=== PATIENT | female | born 1975 | race Caucasian/White ===

== ENCOUNTER → 2016-11-04 | Outpatient (CLI) | payer MEDICARE, OTHER ==
[2016-11-04 22:03] LABS: FREE T4 0.89 NG/DL (0.76-1.46); LUTEINIZING HORMONE 6.3 mIU/mL
== END ==
LOC: M SMT 13:48
PROVIDERS: ATTEND Specialist
DX: N93.8 Other specified abnormal uterine and vaginal bleeding (principal); Z79.899 Other long term (current) drug therapy

== ENCOUNTER → 2016-11-21 | Outpatient (CLI) | payer MEDICARE, OTHER ==
[~2016-11-21] MED LIST: ISOVUE-370 76% 100ML VIAL (Q9967) As Ordered ONE
--- NOTE | 2016-11-22 07:09 | REP ---
Hysterosalpingogram, 11/21/2016: Indication: Infertility, 41 year old female. History of previous tubal ligation. Technique: Internal cervical os was cannulated with fine catheter by Dr. Wally Rahman. Water soluble contrast was injected into the endometrial cavity which was subsequently opacified with contrast. Balloon catheter is seen within the endometrial cavity. Additional contrast was injected but the fallopian tubes did not opacify with contrast. Incidentally noted is ORIF from lumbar discectomies with disc cage placement L4-5, L5-S1. There are bilateral posterior pedicular screws L4-S1. Impression : There is no contrast identified within the fallopian tubes post contrast injection at the internal cervical os. Findings are consistent with prior tubal ligation and bilateral tubal occlusion. Signed by Nona Snow MD 11/24/2016 10:46 A
== END ==
LOC: M RADPRO 11:40
PROVIDERS: ATTEND Specialist
DX: N97.9 Female infertility, unspecified (principal); Z96.7 Presence of other bone and tendon implants
CPT/HCPCS: 58340; 74740; Q9967

== ENCOUNTER → 2016-12-03 | Day surgery (SDC) | payer MEDICARE, OTHER ==
[~2016-12-03] VITALS: Ht 157.5 cm; Wt 75.3 kg
[~2016-12-03] MED LIST changes: +BUPIVACAINE HCL 0.25% 30 ML VIAL As Ordered ONE; +BUPIVACAINE HCL 0.25% 30 ML VIAL XX ONE; +HYDROmorphone HCL 1 MG/ML SYRINGE (J1170) IV PRN; +HYDROmorphone HCL 2 MG/ML 1ML VIAL (J1170) As Ordered ONE; -ISOVUE-370 76% 100ML VIAL (Q9967) As Ordered ONE; +KETOROLAC 60 MG/2 ML VIAL (J1885) As Ordered ONE; +LIDOCAINE 2% INJ 100 MG/5 ML SDV (FOR ANES.) As Ordered ONE; +LR 1,000 ML IV SCH; +METHYLENE BLUE 1% 10 ML VIAL (Q9968) As Ordered ONE; +METO12TA PO; +METOCLOPRAMIDE INJ 10MG/2ML VIAL (J2765) As Ordered ONE; +MIDAZOLAM INJ 2 MG/2 ML VIAL (J2250) As Ordered ONE; +ONDANSETRON 4MG/2ML VIAL (J2405) As Ordered ONE; +ONDANSETRON 4MG/2ML VIAL (J2405) IV PRN; +OXYC1TAB23 PO; +PERCOCET 5MG/325MG TAB PO PRN; +PROPOFOL 500 MG/50 ML VIAL As Ordered ONE; +ROCURONIUM BROMIDE 50 MG/5 ML VIAL As Ordered ONE; +SKEL-29 PO; +SUGAMMADEX SODIUM 500 MG/5 ML VIAL (BRIDION) As Ordered ONE; +dexameTHASONE 4 MG/ML 1ML VIAL (J1100) As Ordered ONE; +fentaNYL 100 MCG/2 ML INJECTION (J3010) As Ordered ONE; +fentaNYL 100 MCG/2 ML INJECTION (J3010) IV PRN
[2016-12-03 07:35] LABS: CONTROL LINE UCG INT CTR LINE PRESENT
--- NOTE | 2016-12-03 10:33 | RO ---
DATE OF PROCEDURE: 12/03/2016 PREOPERATIVE DIAGNOSIS: Pelvic pain, adhesions. POSTOPERATIVE DIAGNOSIS: Pelvic pain, adhesions. PROCEDURE: Operative laparoscopy chromotubation. SURGEON: Wally Rahman MD FINANCIAL AID COUNSELOR: Gena Olmstead MD ANESTHESIA: General endotracheal. ESTIMATED BLOOD LOSS: Minimal. FINDINGS: Normal appearing uterus. Dense adhesions of omentum entire left side of the pelvis. Normal upper abdomen. She had a shortened right fallopian tube with immediate fill and spill of methylene blue dye upon chromotubation. The right ovary is normal. The left ovary is adhesed to the omentum, left tube. It is completely indiscernible. The posterior cul-de-sac is free and the anterior cul-de-sac is free. OPERATIVE SUMMARY: Patient taken to the operating room where general endotracheal anesthesia was induced. She was prepped and draped in sterile fashion in the dorsal lithotomy position. Speculum was placed. A ZReocar uterine manipulator was placed. A Avalos catheter was placed. Periumbilical incision was made with a scalpel. Veress needle was placed through this incision, tenting up on skin of the abdomen. Intraabdominal location with the Veress needle will assess these with saline filled syringe. Pneumoperitoneum was created. A 5 mm scope with trocar was placed through this incision. A second 5 mm suprapubic port was placed in the right side under direct visualization. were used to survey pelvic structures. Methylene blue dye was instilled through into the uterus using the ZUMI manipulator and syringe. There was immediate filled spill dye from the right fallopian tube. There was no filled spill from the left. There were dense adhesions in the left side of the pelvis and uterus. These were deemed not obstructing the right fallopian tube and were unable to be taken down due to severity of the adhesions. The pneumoperitoneum released. All instruments were removed. The skin was closed with #4-0 Monocryl subcuticular sutures. Sponge, instrument and needle counts were correct.
[2016-12-03 11:30] VITALS: BP 149/76
== END | disposition home or self-care (01) ==
LOC: M SDC 06:43
PROVIDERS: ATTEND Specialist
DX: R10.2 Pelvic and perineal pain (principal); K66.0 Peritoneal adhesions (postprocedural) (postinfection); F43.10 Post-traumatic stress disorder, unspecified; F41.9 Anxiety disorder, unspecified; F32.9 Major depressive disorder, single episode, unspecified; E78.00 Pure hypercholesterolemia, unspecified; I10 Essential (primary) hypertension; M51.9 Unspecified thoracic, thoracolumbar and lumbosacral intervertebral disc disorder; F17.210 Nicotine dependence, cigarettes, uncomplicated; Z79.899 Other long term (current) drug therapy; Z88.1 Allergy status to other antibiotic agents; Z88.8 Allergy status to other drugs, medicaments and biological substances
CPT/HCPCS: 36415; 49320; 58350; 84703; 85014; 85018; J1100; J1170; J1885; J2250; J2405; J2765; J3010; Q9968

== ENCOUNTER 2016-12-07 15:19 | Emergency (ER) | payer MEDICARE, OTHER ==
[~2016-12-07 15:19] MED LIST changes: -BUPIVACAINE HCL 0.25% 30 ML VIAL As Ordered ONE; -BUPIVACAINE HCL 0.25% 30 ML VIAL XX ONE; -HYDROmorphone HCL 1 MG/ML SYRINGE (J1170) IV PRN; -HYDROmorphone HCL 2 MG/ML 1ML VIAL (J1170) As Ordered ONE; -KETOROLAC 60 MG/2 ML VIAL (J1885) As Ordered ONE; -LIDOCAINE 2% INJ 100 MG/5 ML SDV (FOR ANES.) As Ordered ONE; -LR 1,000 ML IV SCH; -METHYLENE BLUE 1% 10 ML VIAL (Q9968) As Ordered ONE; -METOCLOPRAMIDE INJ 10MG/2ML VIAL (J2765) As Ordered ONE; -MIDAZOLAM INJ 2 MG/2 ML VIAL (J2250) As Ordered ONE; -ONDANSETRON 4MG/2ML VIAL (J2405) As Ordered ONE; -ONDANSETRON 4MG/2ML VIAL (J2405) IV PRN; -PERCOCET 5MG/325MG TAB PO PRN; -PROPOFOL 500 MG/50 ML VIAL As Ordered ONE; -ROCURONIUM BROMIDE 50 MG/5 ML VIAL As Ordered ONE; -SUGAMMADEX SODIUM 500 MG/5 ML VIAL (BRIDION) As Ordered ONE; -dexameTHASONE 4 MG/ML 1ML VIAL (J1100) As Ordered ONE; -fentaNYL 100 MCG/2 ML INJECTION (J3010) As Ordered ONE; -fentaNYL 100 MCG/2 ML INJECTION (J3010) IV PRN
[2016-12-07 16:17] LABS: BASO % 0.2 % (0.0-1.0); EOS # 0.1 K/mm3 (0.0-0.50); EOS % 1.9 % (0.0-3.0); LARGE UNSTAINED CELL # 0.1 K/mm3 (0.0-0.4); LARGE UNSTAINED CELL % 1.6 % (0.0-4.0); LYMPH # 1.3 K/mm3 (1.5-4.5); MEAN CORPUSCULAR HGB CONC 32.7 g/dl (32.0-36.5); MEAN CORPUSCULAR VOLUME 88.9 fl (80.0-96.0); MONO # 0.6 K/mm3 (0.0-0.8); MONO % 8.5 % (0.0-5.0); NEUTROPHILS % 70.9 % (36.0-66.0); PLATELET COUNT, AUTOMATED 312 k/mm3 (150-450); RED CELL DISTRIBUTION WIDTH 14.9 % (11.5-14.5)
[2016-12-07 16:41] LABS: ANION GAP 8 MEQ/L (8-16); BLOOD UREA NITROGEN 14 MG/DL (7-18); CALCIUM LEVEL 9.2 MG/DL (8.5-10.1); CARBON DIOXIDE LEVEL 28 MEQ/L (21-32); CHLORIDE LEVEL 107 MEQ/L (98-107); CREATININE FOR GFR 0.73 MG/DL (0.55-1.02); GLOMERULAR FILTRATION RATE > 60.0 (>58); GLUCOSE, FASTING 88 MG/DL (70-105); POTASSIUM SERUM 3.8 MEQ/L (3.5-5.1); SODIUM LEVEL 143 MEQ/L (136-145)
[2016-12-07] MEDS ORDERED: ASPIRIN 81 MG CHEW TABLET As Ordered ONE (16:51)
[2016-12-07] MEDS ORDERED: NITROGLYCERIN 0.4 MG SUBL TABLET As Ordered ONE (16:52)
--- NOTE | 2016-12-07 16:59 | ECGEPIP ---
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
[2016-12-07] MEDS ORDERED: MORPHINE 4 MG/ML 1ML SYRINGE As Ordered ONE (18:01)
[2016-12-07] MEDS ORDERED: METOCLOPRAMIDE INJ 10MG/2ML VIAL (J2765) As Ordered ONE (18:01)
--- NOTE | 2016-12-07 21:26 | EDDOCDS ---
Physician Documentation [facility] Name: Scarlett Parker Age: 41 yrs Sex: Female : 1975 Arrival Date: 12/07/2016 Time: 15:19 Bed 6 Private MD: AURORA PIERCE Disposition: 12/07/16 20:56 Discharged to Home/Self Care. Impression: Chest pain, unspecified, Acute pain, not elsewhere classified - dental. - Condition is Stable. - Discharge Instructions: Nonspecific Chest Pain, Dental Pain. - Prescriptions for Offerman 5- 325 mg Oral Tablet - take 1 tablet by ORAL route every 6 hours As needed MDD: 4 tabs; 20 tablet. Aspirin 81 mg - take 1 tablet by ORAL route once daily; 90 tablet. - Medication Reconciliation, Local Pharmacy Hours form. - Follow up: Madalyn Murrell; When: Call to arrange an appointment; Reason: Further diagnostic work-up, Recheck today's complaints, Continuance of care. - Problem is new. - Symptoms are unchanged. - Notes: increase metoprolol to 50 mg a day Historical: - Allergies: Cipro PO; Flagyl; Topamax; - Home Meds: 1. metaxalone 800 mg oral tab 1 tab 3 times per day (Last dose: 12/07/2016) 2. metoprolol tartrate 25 mg Oral tab 1 tab once daily (Last dose: 12/07/2016) 3. omeprazole 40 mg Oral cpDR 1 cap once daily (Last dose: 12/07/2016) 4. ibuprofen 800 mg Oral tab as needed (Last dose: 12/07/2016 13:00) 5. penicillin V potassium 500 mg Oral tab 1 tab 4 times per day (Last dose: 12/07/2016) - PMHx: muscle spasms; high heart rate; GERD; Degenerative disc disease; - PSHx: Spinal Fusion; Laparoscopy (December 2016); - Social history: Smoking status: Patient uses tobacco products, current every day smoker. No barriers to communication noted, The patient speaks fluent Sami, Speaks appropriately for age. - Family history: Not pertinent. - : The pt / caregiver states he / she is not on anticoagulants. Home medication list is obtained from the patient. - Exposure Risk Screening:: None identified. 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 2 in. (157.48 cm) (R); Pain 6/10; 15:49 BP 195 / 126 (auto/); ja5 15:49 Pulse 82 MON; Pulse Ox 98% ; ja5 16:07 BP 192 / 113 (auto/); ja5 16:07 Pulse 84 MON; Pulse Ox 97% ; ja5 16:12 Pulse 84 MON; Pulse Ox 97% ; ja5 16:13 BP 174 / 104 (auto/); ja5 16:16 BP 194 / 122 (man/); ja5 16:27 Pulse 78 MON; Pulse Ox 96% ; ja5 16:28 BP 194 / 111 (auto/); ja5 16:42 Pulse 82 MON; Pulse Ox 97% ; ja5 16:43 BP 178 / 112 (auto/); ja5 17:01 BP 158 / 98; ja5 17:05 BP 153 / 78; ja5 17:11 BP 136 / 75; ja5 17:12 BP 136 / 75 Sitting; ja5 17:31 Pulse 80 MON; Pulse Ox 96% ; ja5 17:32 BP 149 / 100 (auto/); ja5 17:48 BP 127 / 56 (auto/); ja5 18:24 BP 118 / 57 (auto/); ja5 18:24 Pulse 104 MON; Pulse Ox 90% ; ja5 18:48 BP 170 / 96 (auto/); js15 18:48 Pulse 86 MON; Pulse Ox 96% ; js15 18:51 Pain 5/10; ja5 18:54 BP 172 / 102 (auto/); js15 18:54 Pulse 80 MON; Pulse Ox 96% ; js15 18:56 BP 172 / 102; Pulse 83; Resp 16; Temp 97.7(O); Pulse Ox 96% on R/A; Pain 5/10; ja5 19:02 BP 175 / 103 (auto/); js15 19:02 Pulse 86 MON; Pulse Ox 97% ; js15 19:17 BP 161 / 101 (auto/); js15 19:17 Pulse 80 MON; Pulse Ox 94% ; js15 19:32 BP 176 / 105 (auto/); js15 19:32 Pulse 74 MON; Pulse Ox 92% ; js15 19:47 BP 161 / 103 (auto/); js15 19:47 Pulse 74 MON; Pulse Ox 94% ; js15 20:02 BP 161 / 105 (auto/); js15 20:02 Pulse 82 MON; Pulse Ox 96% ; js15 20:17 BP 162 / 109 (auto/); js15 20:17 Pulse 80 MON; Pulse Ox 94% ; js15 20:32 BP 172 / 108 (auto/); js15 20:32 Pulse 74 MON; Pulse Ox 95% ; js15 20:47 BP 179 / 105 (auto/); js15 20:47 Pulse 76 MON; Pulse Ox 96% ; js15 21:05 Pulse 82 MON; Resp 20; Temp 100.0; Pulse Ox 97% on R/A; Pain 4/10; js15 21:07 BP 159 / 79 (auto/); js15 15:21 Body Mass Index 31.28 (77.56 kg, 157.48 cm) gr2 MDM: 15:24 ECG WITH READING ER PHYS+CARDIAG ordered. EDMS 15:47 Lead Man Over All Dies In Pattern Shop/Pulse Ox/q 30 min VS ordered. jc4 15:47 IV Saline Lock ordered. jc4 15:47 Rhythm Strip to chart ordered. jc4 15:47 Undress patient appropriately for examination ordered. jc4 15:47 Basic Metabolic Profile Ordered. EDMS 15:47 CBC with Diff Ordered. EDMS 15:47 Cardiac Injury Profile Ordered. EDMS 15:47 Troponin Ordered. EDMS 16:33 Financial registration complete. gjb 16:33 Nitrostat 0.4 mg Sublingual every 5 minutes; hold if SBP<90mmHg.Document Pain Score ke Response to Each Dose x3 ordered. 16:33 Aspirin 324 mg PO once ordered. ke 16:35 Chest, 2 View (pa\E\lat) Ordered. EDMS 16:37 [facility] [place] Agreement was scanned into [employer] and attached to record. gjb 16:44 CBC with Diff Reviewed. ke 16:44 Basic Metabolic Profile Reviewed. ke 16:44 Cardiac Injury Profile Reviewed. ke 16:44 Troponin Reviewed. ke 17:50 Redraw CIP &Troponin (put time in details section) ordered. ke 17:50 Repeat EKG (put time details section) ordered. ke 17:50 Metoclopramide 10 mg IV at 40 mg/hr once over 15 mins ordered. ke 17:50 morphine 4 mg IVP once ordered. ke 17:54 Repeat EKG (put time details section) complete. ar3 17:55 Redraw CIP &Troponin (put time in details section) complete. ar3 17:55 ECG WITH READING ER PHYS ordered. EDMS 17:56 CARDIAC MARKER PANEL Ordered. EDMS 18:24 EKG-ADULT Reviewed. ke 20:07 ECG WITH READING ER PHYS+CARDIAG ordered. EDMS 20:43 CARDIAC MARKER PANEL Reviewed. ke Administered Medications: 16:55 Drug: Nitrostat 0.4 mg [Nitrostat 0.4 mg sublingual tablet (1 tabs)] Route: Sublingual; ja5 16:55 Drug: Aspirin 324 mg [aspirin 81 mg chewable tablet (4 tabs)] Route: PO; ja5 17:00 Drug: Nitrostat 0.4 mg [Nitrostat 0.4 mg sublingual tablet (1 tabs)] Route: Sublingual; ja5 17:06 Drug: Nitrostat 0.4 mg [Nitrostat 0.4 mg sublingual tablet (1 tabs)] Route: Sublingual; ja5 17:12 Follow up: BP 136 / 75 Sitting ja5 18:14 Drug: morphine 4 mg [morphine 4 mg/mL intravenous cartridge (1 mL)] Route: IVP; Site: ja5 left antecubital; 18:51 Follow up: Pain 5/10 Adult ja5 18:15 Drug: Metoclopramide 10 mg [metoclopramide 5 mg/mL injection solution] Route: IV; Rate: ja5 40 mg/hr; Infused Over: 15 mins; Site: left antecubital; 18:52 Follow up: IV Status: Completed infusion ja5 Signatures: Dispatcher [employer] EDJhoan Hinds, CURRICULUM WRITER CURRICULUM WRITER Kari JonesRN RN kr3 Jerri Wylie, MAINTENANCE TECHNICIAN 3RD SHIFT MAINTENANCE TECHNICIAN 3RD SHIFT adria3 Bernadette Dunbar RN RN jc4 Miranda ChaudharyRN RN prudence15 Junie Lynch Jessica RN ja5 The chart was reviewed and I authenticate all verbal orders and agree with the evaluation and treatment provided.Attachments: 16:37 [facility] [place] Payment Agreement gjb MTDD
--- NOTE | 2016-12-07 21:26 | EDDOCDS ---
Nurse's Notes [facility] Name: Jeovany Dong Age: 41 yrs Sex: Female : 1975 Arrival Date: 12/07/2016 Time: 15:19 Bed 6 Private MD: AURORA PIERCE Diagnosis: Chest pain, unspecified;Acute pain, not elsewhere classified-dental Presentation: 12/07 15:23 Presenting complaint: Patient states: feeling out of breath and chest pain for several kr3 hours. Aspirin was not taken prior to arrival. Adult Sepsis Screening: The patient does not have new or worsening altered mentation. Patient's respiratory rate is less than 22. Systolic blood pressure is greater than 100. Patient has a qSOFA score of 0- Negative Sepsis Screen. Suicide/Homicide risk assessment- the patient denies having any suicidal and/or homicidal ideations and does not present with any other emotional, behavioral or mental health complaints. Status: The patient is a dependent. 15:23 Acuity: IRENE Level 2 kr3 15:23 Method Of Arrival: Walkin/Carried/Asstd kr3 15:36 Transition of care: patient was not received from another setting of care. Red Flag kr3 criteria, patient assessed and taken directly to a bed. Triage Assessment: 15:27 General: Appears in no apparent distress, Behavior is appropriate for age, cooperative. kr3 Pain: Location: chest Pain currently is 2 out of 10 on a pain scale. Quality of pain is described as heaviness, warm. HIV screening NA for this visit Offered previously. Cardiovascular: Chest pain is described as mild, radiates to left shoulder episodes are continuous began 2 hours prior to arrival. Respiratory: Airway is patent Respiratory effort is even, unlabored, Reports shortness of breath pain with respiration. Derm: Skin is normal. 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 metaxalone 800 mg oral tab 1 tab 3 times per day (Last dose: 12/07/2016) 2. metoprolol tartrate 25 mg Oral tab 1 tab once daily (Last dose: 12/07/2016) 3. omeprazole 40 mg Oral cpDR 1 cap once daily (Last dose: 12/07/2016) 4. ibuprofen 800 mg Oral tab as needed (Last dose: 12/07/2016 13:00) 5. penicillin V potassium 500 mg Oral tab 1 tab 4 times per day (Last dose: 12/07/2016) - PMHx: muscle spasms; high heart rate; GERD; Degenerative disc disease; - PSHx: Spinal Fusion; Laparoscopy (December 2016); - Social history: Smoking status: Patient uses tobacco products, current every day smoker. No barriers to communication noted, The patient speaks fluent Kinyarwanda, Speaks appropriately for age. - Family history: Not pertinent. - : The pt / caregiver states he / she is not on anticoagulants. Home medication list is obtained from the patient. - Exposure Risk Screening:: None identified. Screenin:11 Screening information is obtained from the patient. Fall risk: No risks identified. ja5 Assistance ADL's: requires no assistance with activities of daily living. Abuse/DV Screen: The patient / caregiver reports he/she is: not in a situation that causes fear, pain or injury. Nutritional screening: On no prescribed diet. Advance Directives: Currently, there is a health care proxy, Ani Porter, . There is no active DNR order. There is no living will. There is no Power of Production Reproduction Manager. home support is adequate. Assessment: 15:52 General: Appears in no apparent distress, Behavior is appropriate for age, cooperative. ja5 Pain: Location: chest Pain currently is 2 out of 10 on a pain scale. Pain radiates to left clavicle. Neurological: Level of Consciousness is awake, alert, Oriented to person, place, time. Cardiovascular: Capillary refill < 3 seconds Heart tones S1 S2 present Rhythm is sinus rhythm No ectopy. Derm: Skin is intact, Skin is flushed. 16:16 Neurological: Reports numbness to face. ja5 17:09 General: Initial blood pressures and that a manual was taken and it corresponds with ja5 NIBP trends. Patient also experiencing facial numbness. Provider awake.. 17:29 General: Patient just returned from xray, laying in stretcher, family at bedside, face ja5 is still flushed, patient reports increased numbness to face, provider aware. Patient is having pain in her tooth 05/11.. 18:59 General: Patient is awake and alert, resting in stretcher watching tv. Patient still ja5 having numbness to face, tooth pain is down to a 5/10, patient states that she is not having chest pain at this time.. 19:30 General: Appears in no apparent distress, comfortable, Behavior is appropriate for age, js15 cooperative. Pain: Location: chest; left jaw Pain currently is 7 out of 10 on a pain scale. Neurological: Level of Consciousness is awake, alert, obeys commands, Oriented to person, place, time. Cardiovascular: Rhythm is sinus rhythm. Respiratory: Airway is patent Respiratory effort is even, unlabored, Respiratory pattern is regular, symmetrical. Derm: Skin is pink, warm & dry. 20:30 Reassessment: Patient appears in no apparent distress at this time. Pt resting on js15 stretcher with family at bedside; respirations even and unlabored; skin pink, warm, dry. 21:17 Reassessment: Patient appears in no apparent distress at this time. Pain: Location: js15 chest; left jaw Pain currently is 4 out of 10 on a pain scale. Neurological: Level of Consciousness is awake, alert, obeys commands, Oriented to person, place, time. Cardiovascular: Rhythm is sinus rhythm. Respiratory: Airway is patent Respiratory effort is even, unlabored, Respiratory pattern is regular, symmetrical. Derm: Skin is pink, warm & dry. Vital Signs: 15:11 Pulse 114 MON; Pulse Ox 92% ; ja5 15:21 BP 187 / 123; Pulse 91; Resp 18 S; Temp 98.6(O); Pulse Ox 99% on R/A; Weight 77.56 kg gr2 (R); Height 5 ft. 2 in. (157.48 cm) (R); Pain 6/10; 15:49 BP 195 / 126 (auto/); ja5 15:49 Pulse 82 MON; Pulse Ox 98% ; ja5 16:07 BP 192 / 113 (auto/); ja5 16:07 Pulse 84 MON; Pulse Ox 97% ; ja5 16:12 Pulse 84 MON; Pulse Ox 97% ; ja5 16:13 BP 174 / 104 (auto/); ja5 16:16 BP 194 / 122 (man/); ja5 16:27 Pulse 78 MON; Pulse Ox 96% ; ja5 16:28 BP 194 / 111 (auto/); ja5 16:42 Pulse 82 MON; Pulse Ox 97% ; ja5 16:43 BP 178 / 112 (auto/); ja5 17:01 BP 158 / 98; ja5 17:05 BP 153 / 78; ja5 17:11 BP 136 / 75; ja5 17:12 BP 136 / 75 Sitting; ja5 17:31 Pulse 80 MON; Pulse Ox 96% ; ja5 17:32 BP 149 / 100 (auto/); ja5 17:48 BP 127 / 56 (auto/); ja5 18:24 BP 118 / 57 (auto/); ja5 18:24 Pulse 104 MON; Pulse Ox 90% ; ja5 18:48 BP 170 / 96 (auto/); js15 18:48 Pulse 86 MON; Pulse Ox 96% ; js15 18:51 Pain 5/10; ja5 18:54 BP 172 / 102 (auto/); js15 18:54 Pulse 80 MON; Pulse Ox 96% ; js15 18:56 BP 172 / 102; Pulse 83; Resp 16; Temp 97.7(O); Pulse Ox 96% on R/A; Pain 5/10; ja5 19:02 BP 175 / 103 (auto/); js15 19:02 Pulse 86 MON; Pulse Ox 97% ; js15 19:17 BP 161 / 101 (auto/); js15 19:17 Pulse 80 MON; Pulse Ox 94% ; js15 19:32 BP 176 / 105 (auto/); js15 19:32 Pulse 74 MON; Pulse Ox 92% ; js15 19:47 BP 161 / 103 (auto/); js15 19:47 Pulse 74 MON; Pulse Ox 94% ; js15 20:02 BP 161 / 105 (auto/); js15 20:02 Pulse 82 MON; Pulse Ox 96% ; js15 20:17 BP 162 / 109 (auto/); js15 20:17 Pulse 80 MON; Pulse Ox 94% ; js15 20:32 BP 172 / 108 (auto/); js15 20:32 Pulse 74 MON; Pulse Ox 95% ; js15 20:47 BP 179 / 105 (auto/); js15 20:47 Pulse 76 MON; Pulse Ox 96% ; js15 21:05 Pulse 82 MON; Resp 20; Temp 100.0; Pulse Ox 97% on R/A; Pain 4/10; js15 21:07 BP 159 / 79 (auto/); js15 15:21 Body Mass Index 31.28 (77.56 kg, 157.48 cm) gr2 Vitals: 15:21 Log In Time: December 07, 2016 at 15:21. RN notified that patient meets Red Flag gr2 criteria. ED Course: 15:21 Patient visited by Lexy Cardenas. gr2 15:21 AURORA PIERCE is Private Physician. gr2 15:21 Patient moved to Waiting gr2 15:22 Patient visited by Lexy Cardenas. gr2 15:24 Triage Initiated kr3 15:30 Marcia Child,RN is Primary Nurse. kr3 15:30 Bernadette Dunbar, JUANJOSE is Primary Nurse. kr3 15:30 Patient moved to 6 kr3 15:50 Patient visited by Vira Corey. sew 15:50 EKG done. (by ED staff). Reviewed by Jhoan GUY. sew 16:10 Basic Metabolic Profile Sent. ja5 16:10 CBC with Diff Sent. ja5 16:10 Cardiac Injury Profile Sent. ja5 16:10 Troponin Sent. ja5 16:14 Inserted saline lock: 20 gauge in left antecubital area The patient tolerated the ja5 procedure well. 16:15 [facility] ke 16:15 Patient visited by Jhoan Valerio FNP. ke 16:15 Patient visited by Jhoan Valerio FNP. ke 16:37 [facility] Payment Agreement was scanned into [employer] and attached to record. gjb 16:44 Patient visited by Jhoan Valerio FNP. ke 17:07 Patient visited by Jhoan Valerio FNP. ke 17:12 Patient visited by Marcia Child RN. ja5 17:19 EKG-ADULT Returned. EDMS 17:34 Patient visited by Marcia Child RN. ja5 17:57 Patient visited by Jhoan Valerio FNP. ke 18:06 EKG done. (by ED staff). Reviewed by Vira Wallace MD. lr2 18:26 Patient visited by Jhoan Valerio FNP. ke 18:53 Patient visited by Jhoan Valerio FNP. ke 19:00 The patient / caregiver is instructed regarding the plan of care and ED course. Cardiac js15 monitor on. Pulse ox on. NIBP on. monitoring maintained from previous shift. 19:01 Patient visited by Marcia Child RN. ja5 19:29 Patient visited by Johan Valerio FNP. ke 20:04 CARDIAC MARKER PANEL Sent. js15 20:10 Patient visited by Sarah Heath, Aircraft Structural Repair Mechanic. jlm 20:10 EKG done. (by ED staff). Reviewed by Jhoan GUY. jlm 20:32 Primary Nurse role handed off by Marcia Child RN [facility] 20:32 Primary Nurse role handed off by Bernadette Dunbar RN [facility] 20:34 Patient visited by Jhoan Valerio FNP. ke 20:55 Madalyn Murrell is Referral Physician. ke 21:24 Discontinued IV lock intact, bleeding controlled, pressure dressing applied, No js15 redness/swelling at site. No procedures done that require assistance. Administered Medications: 16:55 Drug: Nitrostat 0.4 mg [Nitrostat 0.4 mg sublingual tablet (1 tabs)] Route: Sublingual; ja5 16:55 Drug: Aspirin 324 mg [aspirin 81 mg chewable tablet (4 tabs)] Route: PO; ja5 17:00 Drug: Nitrostat 0.4 mg [Nitrostat 0.4 mg sublingual tablet (1 tabs)] Route: Sublingual; ja5 17:06 Drug: Nitrostat 0.4 mg [Nitrostat 0.4 mg sublingual tablet (1 tabs)] Route: Sublingual; ja5 17:12 Follow up: BP 136 / 75 Sitting ja5 18:14 Drug: morphine 4 mg [morphine 4 mg/mL intravenous cartridge (1 mL)] Route: IVP; Site: ja5 left antecubital; 18:51 Follow up: Pain 5/10 Adult ja5 18:15 Drug: Metoclopramide 10 mg [metoclopramide 5 mg/mL injection solution] Route: IV; Rate: ja5 40 mg/hr; Infused Over: 15 mins; Site: left antecubital; 18:52 Follow up: IV Status: Completed infusion ja5 Order Results: Lab Order: Basic Metabolic Profile; SPEC'M 12/07/16 16:09 Test: GLUCOSE, FASTING; Value: 88; Range: 70-105; Units: MG/DL; Status: F Test: BLOOD UREA NITROGEN; Value: 14; Range: 7-18; Units: MG/DL; Status: F Test: CREATININE FOR GFR; Value: 0.73; Range: 0.55-1.02; Units: MG/DL; Status: F Test: GLOMERULAR FILTRATION RATE; Value: > 60.0; Range: >58; Status: F Test: SODIUM LEVEL; Value: 143; Range: 136-145; Units: MEQ/L; Status: F Test: POTASSIUM SERUM; Value: 3.8; Range: 3.5-5.1; Units: MEQ/L; Status: F Test: CHLORIDE LEVEL; Value: 107; Range: 98-107; Units: MEQ/L; Status: F Test: CARBON DIOXIDE LEVEL; Value: 28; Range: 21-32; Units: MEQ/L; Status: F Test: ANION GAP; Value: 8; Range: 8-16; Units: MEQ/L; Status: F Test: CALCIUM LEVEL; Value: 9.2; Range: 8.5-10.1; Units: MG/DL; Status: F Test Note: ; Units are mL/min/1.73 m2 Chronic Kidney Disease Staging per NKF: Stage I & II GFR >=60 Normal to Mildly Decreased Stage III GFR 30-59 Moderately Decreased Stage IV GFR 15-29 Severely Decreased Stage V GFR <15 Very Little GFR Left ESRD GFR <15 on DOG CONTROL OFFICER Lab Order: CBC with Diff; SPEC'M 12/07/16 16:09 Test: WHITE BLOOD COUNT; Value: 7.0; Range: 4.0-10.0; Units: K/mm3; Status: F Test: RED BLOOD COUNT; Value: 4.16; Range: 4.00-5.40; Units: M/mm3; Status: F Test: HEMOGLOBIN; Value: 12.1; Range: 12.0-16.0; Units: g/dl; Status: F Test: HEMATOCRIT; Value: 36.9; Range: 36.0-47.0; Units: %; Status: F Test: MEAN CORPUSCULAR VOLUME; Value: 88.9; Range: 80.0-96.0; Units: fl; Status: F Test: MEAN CORPUSCULAR HEMOGLOBIN; Value: 29.0; Range: 27.0-33.0; Units: pg; Status: F Test: MEAN CORPUSCULAR HGB CONC; Value: 32.7; Range: 32.0-36.5; Units: g/dl; Status: F Test: RED CELL DISTRIBUTION WIDTH; Value: 14.9; Range: 11.5-14.5; Abnormal: Above high normal; Units: %; Status: F Test: PLATELET COUNT, AUTOMATED; Value: 312; Range: 150-450; Units: k/mm3; Status: F Test: NEUTROPHILS %; Value: 70.9; Range: 36.0-66.0; Abnormal: Above high normal; Units: %; Status: F Test: LYMPH %; Value: 17.0; Range: 24.0-44.0; Abnormal: Below low normal; Units: %; Status: F Test: MONO %; Value: 8.5; Range: 0.0-5.0; Abnormal: Above high normal; Units: %; Status: F Test: EOS %; Value: 1.9; Range: 0.0-3.0; Units: %; Status: F Test: BASO %; Value: 0.2; Range: 0.0-1.0; Units: %; Status: F Test: LARGE UNSTAINED CELL %; Value: 1.6; Range: 0.0-4.0; Units: %; Status: F Test: NEUTROPHILS #; Value: 5.0; Range: 1.8-7.7; Units: K/mm3; Status: F Test: LYMPH #; Value: 1.3; Range: 1.5-4.5; Abnormal: Below low normal; Units: K/mm3; Status: F Test: MONO #; Value: 0.6; Range: 0.0-0.8; Units: K/mm3; Status: F Test: EOS #; Value: 0.1; Range: 0.0-0.50; Units: K/mm3; Status: F Test: BASO #; Value: 0.0; Range: 0.0-0.2; Units: K/mm3; Status: F Test: LARGE UNSTAINED CELL #; Value: 0.1; Range: 0.0-0.4; Units: K/mm3; Status: F Lab Order: Cardiac Injury Profile; SPEC'M 12/07/16 16:09 Test: CPK CREATINE PHOSPHOKINASE; Value: 46; Range: 26-192; Units: U/L; Status: F Test: CK-MB VALUE MASS; Value: 1.0; Range: 0.0-3.6; Units: NG/ML; Status: F Test: MB/CK RELATIVE INDEX; Value: 2.17; Range: < OR =4; Status: F Test Note: ; DIAGNOSIS CRITERIA MMB ng/ml Relative Index (RI) NON-AMI < or = 5 N/A COBURN ZONE > 5 < or = 4 AMI > 5 > 4 Lab Order: Troponin; SPEC'M 12/07/16 16:09 Test: TROPONIN I; Value: < 0.02; Range: < 0.10; Units: NG/ML; Status: F Test Note: ; Troponin I Reference Interval for [place] LOCI: 99th Percentile= 0.00-0.045 ng/ml Risk Stratification: <= 0.10 ng/ml Decreased Risk for Adverse Clinical Events. 0.10-1.50 ng/ml Increased Risk for Adverse Clinical Events. Evaluation of additional criterion and/or repeat testing in 2-6 hours is suggested to rule out myocardial damage. >= 1.50 ng/ml Indicative of Myocardial Injury. Lab Order: CARDIAC MARKER PANEL; SPEC'M 12/07/16 20:03 Test: CPK CREATINE PHOSPHOKINASE; Value: 52; Range: 26-192; Units: U/L; Status: F Test: CK-MB VALUE MASS; Value: 1.0; Range: 0.0-3.6; Units: NG/ML; Status: F Test: MB/CK RELATIVE INDEX; Value: 1.92; Range: < OR =4; Status: F Test: TROPONIN I; Value: < 0.02; Range: < 0.10; Units: NG/ML; Status: F Test Note: ; DIAGNOSIS CRITERIA MMB ng/ml Relative Index (RI) NON-AMI < or = 5 N/A COBURN ZONE > 5 < or = 4 AMI > 5 > 4 Radiology Order: EKG-ADULT Test: EKG-ADULT REASON FOR EXAMINATION: Chest Pain; Stationary ECG Study; [facility] - ED; ; Test Date: 2016-12-07; Pat Name: JEOVANY DONG Department:; Room: -; Gender: F 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 johnathan 21:24 Discharge Assessment: Patient awake, alert and oriented x 3. No cognitive and/or js15 functional deficits noted. Patient verbalized understanding of disposition instructions. patient administered narcotics - yes. Pt provided with safe discharge. The following High Risk Discharge criteria are identified: None. Discharged to home ambulatory, with family. Condition: stable. Discharge instructions given to patient, Instructed on discharge instructions, follow up and referral plans. medication usage, no driving heavy equipment, Demonstrated understanding of instructions, medications, Pt was receptive of discharge instructions/ teaching. Prescriptions given X 2. No special radiology studies were completed. Property sent home with patient. 21:25 Patient left the ED. js15 Signatures: Dispatcher [employer] EDMS Jhoan Valerio, CHARTER DRIVER CHARTER DRIVER Kari Jones,RN RN Vira Johnson McLear, Uzma, TOLL BRIDGE ATTENDANT TOLL BRIDGE ATTENDANT tmm1 Lexy Cardenas gr2 Sarah Heath, Aircraft Structural Repair Mechanic Unit Miranda PuentesRN RN js15 Junie Lynch Jessica,RN RN Paola Francis2 Corrections: (The following items were deleted from the chart) 17:04 17:03 Nitrostat 0.4 mg Sublingual ja5 ja5 17:04 17:04 Nitrostat 0.4 mg Sublingual ja5 ja5 MTDD
--- NOTE | 2016-12-08 05:54 | REP ---
Chest x-ray: Two views. History: Chest pain. No comparison study. Findings: The lungs are well inflated and clear. Pleural angles are sharp. EKG monitoring electrodes overlie the chest. Pulmonary vasculature is not increased. No significant bony abnormality is seen. Impression: No active disease. Signed by Adrien Moctezuma MD 12/08/2016 02:24 P
--- NOTE | 2016-12-08 07:09 | ECGEPIP ---
Stationary ECG Study [facility] - ED Test Date: 2016-12-07 Pat Name: JEOVANY DONG Department: Room: - Gender: F [employer] Supervisor: millie : 1975 Requested By: EV GUY Order Number: [id number] Reading MD: Sergey Pandey Measurements Intervals [place] Rate: 78 P: 23 MS: 152 QRS: 36 QRSD: 92 T: 23 QT: 378 QTc: 433 Interpretive Statements SINUS RHYTHM INCOMPLETE RIGHT BUNDLE BRANCH BLOCK Electronically Signed On 12-08-2016 7:09:26 EST by Sergey Pandey
--- NOTE | 2016-12-08 07:10 | ECGEPIP ---
Stationary ECG Study [facility] - ED Test Date: 2016-12-07 Pat Name: JEOVANY DONG Department: Room: - Gender: F Pot Pusher: eyad : 1975 Requested By: EV UGY Order Number: [id number] Reading MD: Sergey Pandey Measurements Intervals [place] Rate: 82 P: 28 [place]: 152 QRS: 41 QRSD: 90 T: 24 QT: 369 QTc: 431 Interpretive Statements SINUS RHYTHM INC. RBBB Electronically Signed On 12-08-2016 7:10:24 EST by Sergey Pandey
--- NOTE | 2016-12-09 22:26 | EDDOCDS ---
Nurse's Notes [facility] Name: Jeovany Dong Age: 41 yrs Sex: Female : 1975 Arrival Date: 12/07/2016 Time: 15:19 Bed 6 Private MD: AURORA PIERCE Diagnosis: Chest pain, unspecified;Acute pain, not elsewhere classified-dental Presentation: 12/07 15:23 Presenting complaint: Patient states: feeling out of breath and chest pain for several kr3 hours. Aspirin was not taken prior to arrival. Adult Sepsis Screening: The patient does not have new or worsening altered mentation. Patient's respiratory rate is less than 22. Systolic blood pressure is greater than 100. Patient has a qSOFA score of 0- Negative Sepsis Screen. Suicide/Homicide risk assessment- the patient denies having any suicidal and/or homicidal ideations and does not present with any other emotional, behavioral or mental health complaints. Status: The patient is a dependent. 15:23 Acuity: IRENE Level 2 kr3 15:23 Method Of Arrival: Walkin/Carried/Asstd kr3 15:36 Transition of care: patient was not received from another setting of care. Red Flag kr3 criteria, patient assessed and taken directly to a bed. Triage Assessment: 15:27 General: Appears in no apparent distress, Behavior is appropriate for age, cooperative. kr3 Pain: Location: chest Pain currently is 2 out of 10 on a pain scale. Quality of pain is described as heaviness, warm. HIV screening NA for this visit Offered previously. Cardiovascular: Chest pain is described as mild, radiates to left shoulder episodes are continuous began 2 hours prior to arrival. Respiratory: Airway is patent Respiratory effort is even, unlabored, Reports shortness of breath pain with respiration. Derm: Skin is normal. VISUAL SPECIALIST: 15:27 LMP 12/04/2016 kr3 Historical: - Allergies: Cipro PO; Flagyl; Topamax; - Home Meds: 1. metaxalone 800 mg oral tab 1 tab 3 times per day (Last dose: 12/07/2016) 2. metoprolol tartrate 25 mg Oral tab 1 tab once daily (Last dose: 12/07/2016) 3. omeprazole 40 mg Oral cpDR 1 cap once daily (Last dose: 12/07/2016) 4. ibuprofen 800 mg Oral tab as needed (Last dose: 12/07/2016 13:00) 5. penicillin V potassium 500 mg Oral tab 1 tab 4 times per day (Last dose: 12/07/2016) - PMHx: muscle spasms; high heart rate; GERD; Degenerative disc disease; - PSHx: Spinal Fusion; Laparoscopy (December 2016); - Social history: Smoking status: Patient uses tobacco products, current every day smoker. No barriers to communication noted, The patient speaks fluent Indian, Speaks appropriately for age. - Family history: Not pertinent. - : The pt / caregiver states he / she is not on anticoagulants. Home medication list is obtained from the patient. - Exposure Risk Screening:: None identified. Screenin:11 Screening information is obtained from the patient. Fall risk: No risks identified. ja5 Assistance ADL's: requires no assistance with activities of daily living. Abuse/DV Screen: The patient / caregiver reports he/she is: not in a situation that causes fear, pain or injury. Nutritional screening: On no prescribed diet. Advance Directives: Currently, there is a health care proxy, Ani Porter, . There is no active DNR order. There is no living will. There is no Power of Tug Hand. home support is adequate. Assessment: 15:52 General: Appears in no apparent distress, Behavior is appropriate for age, cooperative. ja5 Pain: Location: chest Pain currently is 2 out of 10 on a pain scale. Pain radiates to left clavicle. Neurological: Level of Consciousness is awake, alert, Oriented to person, place, time. Cardiovascular: Capillary refill < 3 seconds Heart tones S1 S2 present Rhythm is sinus rhythm No ectopy. Derm: Skin is intact, Skin is flushed. 16:16 Neurological: Reports numbness to face. ja5 17:09 General: Initial blood pressures and that a manual was taken and it corresponds with ja5 NIBP trends. Patient also experiencing facial numbness. Provider awake.. 17:29 General: Patient just returned from xray, laying in stretcher, family at bedside, face ja5 is still flushed, patient reports increased numbness to face, provider aware. Patient is having pain in her tooth 05/11.. 18:59 General: Patient is awake and alert, resting in stretcher watching tv. Patient still ja5 having numbness to face, tooth pain is down to a 5/10, patient states that she is not having chest pain at this time.. 19:30 General: Appears in no apparent distress, comfortable, Behavior is appropriate for age, js15 cooperative. Pain: Location: chest; left jaw Pain currently is 7 out of 10 on a pain scale. Neurological: Level of Consciousness is awake, alert, obeys commands, Oriented to person, place, time. Cardiovascular: Rhythm is sinus rhythm. Respiratory: Airway is patent Respiratory effort is even, unlabored, Respiratory pattern is regular, symmetrical. Derm: Skin is pink, warm & dry. 20:30 Reassessment: Patient appears in no apparent distress at this time. Pt resting on js15 stretcher with family at bedside; respirations even and unlabored; skin pink, warm, dry. 21:17 Reassessment: Patient appears in no apparent distress at this time. Pain: Location: js15 chest; left jaw Pain currently is 4 out of 10 on a pain scale. Neurological: Level of Consciousness is awake, alert, obeys commands, Oriented to person, place, time. Cardiovascular: Rhythm is sinus rhythm. Respiratory: Airway is patent Respiratory effort is even, unlabored, Respiratory pattern is regular, symmetrical. Derm: Skin is pink, warm & dry. Vital Signs: 15:11 Pulse 114 MON; Pulse Ox 92% ; ja5 15:21 BP 187 / 123; Pulse 91; Resp 18 S; Temp 98.6(O); Pulse Ox 99% on R/A; Weight 77.56 kg gr2 (R); Height 5 ft. 2 in. (157.48 cm) (R); Pain 6/10; 15:49 BP 195 / 126 (auto/); ja5 15:49 Pulse 82 MON; Pulse Ox 98% ; ja5 16:07 BP 192 / 113 (auto/); ja5 16:07 Pulse 84 MON; Pulse Ox 97% ; ja5 16:12 Pulse 84 MON; Pulse Ox 97% ; ja5 16:13 BP 174 / 104 (auto/); ja5 16:16 BP 194 / 122 (man/); ja5 16:27 Pulse 78 MON; Pulse Ox 96% ; ja5 16:28 BP 194 / 111 (auto/); ja5 16:42 Pulse 82 MON; Pulse Ox 97% ; ja5 16:43 BP 178 / 112 (auto/); ja5 17:01 BP 158 / 98; ja5 17:05 BP 153 / 78; ja5 17:11 BP 136 / 75; ja5 17:12 BP 136 / 75 Sitting; ja5 17:31 Pulse 80 MON; Pulse Ox 96% ; ja5 17:32 BP 149 / 100 (auto/); ja5 17:48 BP 127 / 56 (auto/); ja5 18:24 BP 118 / 57 (auto/); ja5 18:24 Pulse 104 MON; Pulse Ox 90% ; ja5 18:48 BP 170 / 96 (auto/); js15 18:48 Pulse 86 MON; Pulse Ox 96% ; js15 18:51 Pain 5/10; ja5 18:54 BP 172 / 102 (auto/); js15 18:54 Pulse 80 MON; Pulse Ox 96% ; js15 18:56 BP 172 / 102; Pulse 83; Resp 16; Temp 97.7(O); Pulse Ox 96% on R/A; Pain 5/10; ja5 19:02 BP 175 / 103 (auto/); js15 19:02 Pulse 86 MON; Pulse Ox 97% ; js15 19:17 BP 161 / 101 (auto/); js15 19:17 Pulse 80 MON; Pulse Ox 94% ; js15 19:32 BP 176 / 105 (auto/); js15 19:32 Pulse 74 MON; Pulse Ox 92% ; js15 19:47 BP 161 / 103 (auto/); js15 19:47 Pulse 74 MON; Pulse Ox 94% ; js15 20:02 BP 161 / 105 (auto/); js15 20:02 Pulse 82 MON; Pulse Ox 96% ; js15 20:17 BP 162 / 109 (auto/); js15 20:17 Pulse 80 MON; Pulse Ox 94% ; js15 20:32 BP 172 / 108 (auto/); js15 20:32 Pulse 74 MON; Pulse Ox 95% ; js15 20:47 BP 179 / 105 (auto/); js15 20:47 Pulse 76 MON; Pulse Ox 96% ; js15 21:05 Pulse 82 MON; Resp 20; Temp 100.0; Pulse Ox 97% on R/A; Pain 4/10; js15 21:07 BP 159 / 79 (auto/); js15 15:21 Body Mass Index 31.28 (77.56 kg, 157.48 cm) gr2 Vitals: 15:21 Log In Time: December 07, 2016 at 15:21. RN notified that patient meets Red Flag gr2 criteria. ED Course: 15:21 Patient visited by Lexy Cardenas. gr2 15:21 AURORA PIERCE is Private Physician. gr2 15:21 Patient moved to Waiting gr2 15:22 Patient visited by Lexy Cardenas. gr2 15:24 Triage Initiated kr3 15:30 Marcia Child,RN is Primary Nurse. kr3 15:30 Bernadette Dunbar, JUANJOSE is Primary Nurse. kr3 15:30 Patient moved to 6 kr3 15:50 Patient visited by Vira Corey. sew 15:50 EKG done. (by ED staff). Reviewed by Jhoan GUY. sew 16:10 Basic Metabolic Profile Sent. ja5 16:10 CBC with Diff Sent. ja5 16:10 Cardiac Injury Profile Sent. ja5 16:10 Troponin Sent. ja5 16:14 Inserted saline lock: 20 gauge in left antecubital area The patient tolerated the ja5 procedure well. 16:15 [facility] Valer[facility]. ke 16:15 Patient visited by Jhoan Valerio FNP. ke 16:15 Patient visited by Jhoan Valerio FNP. ke 16:37 [facility] Payment Agreement was scanned into [employer]ANDA and attached to record. gjb 16:44 Patient visited by Jhoan Valerio FNP. ke 17:07 Patient visited by Jhoan Valerio FNP. ke 17:12 Patient visited by Marcia Child RN. ja5 17:19 EKG-ADULT Returned. EDMS 17:34 Patient visited by Marcia Child RN. ja5 17:57 Patient visited by Jhoan Valerio FNP. ke 18:06 EKG done. (by ED staff). Reviewed by Vira Wallace MD. lr2 18:26 Patient visited by Jhaon Valerio FNP. ke 18:53 Patient visited by Jhoan Valerio FNP. ke 19:00 The patient / caregiver is instructed regarding the plan of care and ED course. Cardiac js15 monitor on. Pulse ox on. NIBP on. monitoring maintained from previous shift. 19:01 Patient visited by Marcia Child RN. ja5 19:29 Patient visited by Jhoan Valerio FNP. ke 20:04 CARDIAC MARKER PANEL Sent. js15 20:10 Patient visited by Sarah Heath, Mixing Engineer. jlm 20:10 EKG done. (by ED staff). Reviewed by Jhoan GUY. jlm 20:32 Primary Nurse role handed off by Marcia Child RN [facility] 20:32 Primary Nurse role handed off by Bernadette Dunbar RN tm 20:34 Patient visited by Jhoan Valerio FNP. ke 20:55 Madalyn Murrell is Referral Physician. ke 21:24 Discontinued IV lock intact, bleeding controlled, pressure dressing applied, No js15 redness/swelling at site. No procedures done that require assistance. 12/08 06:09 Chest, 2 View (pa\E\lat) Returned. EDMS 07:15 ECG WITH READING ER PHYS Returned. EDMS 07:15 ECG WITH READING ER PHYS Returned. EDMS 10:45 T-Sheet-- Draft Copy was scanned into OANDA and attached to record. gb 10:46 ECG/EKG was scanned into OANDA and attached to record. gb 10:46 Trend VS was scanned into OANDA and attached to record. gb Administered Medications: 12/07 16:55 Drug: Nitrostat 0.4 mg [Nitrostat 0.4 mg sublingual tablet (1 tabs)] Route: Sublingual; 5 16:55 Drug: Aspirin 324 mg [aspirin 81 mg chewable tablet (4 tabs)] Route: PO; ja5 17:00 Drug: Nitrostat 0.4 mg [Nitrostat 0.4 mg sublingual tablet (1 tabs)] Route: Sublingual; ja5 17:06 Drug: Nitrostat 0.4 mg [Nitrostat 0.4 mg sublingual tablet (1 tabs)] Route: Sublingual; 5 17:12 Follow up: BP 136 / 75 Sitting 5 18:14 Drug: morphine 4 mg [morphine 4 mg/mL intravenous cartridge (1 mL)] Route: IVP; Site: [facility] left antecubital; 18:51 Follow up: Pain 5/10 Adult 5 18:15 Drug: Metoclopramide 10 mg [metoclopramide 5 mg/mL injection solution] Route: IV; Rate: ja5 40 mg/hr; Infused Over: 15 mins; Site: left antecubital; 18:52 Follow up: IV Status: Completed infusion ja5 Attachments: 10:46 Trend VS gb Order Results: Lab Order: Basic Metabolic Profile; SPEC'M 12/07/16 16:09 Test: GLUCOSE, FASTING; Value: 88; Range: 70-105; Units: MG/DL; Status: F Test: BLOOD UREA NITROGEN; Value: 14; Range: 7-18; Units: MG/DL; Status: F Test: CREATININE FOR GFR; Value: 0.73; Range: 0.55-1.02; Units: MG/DL; Status: F Test: GLOMERULAR FILTRATION RATE; Value: > 60.0; Range: >58; Status: F Test: SODIUM LEVEL; Value: 143; Range: 136-145; Units: MEQ/L; Status: F Test: POTASSIUM SERUM; Value: 3.8; Range: 3.5-5.1; Units: MEQ/L; Status: F Test: CHLORIDE LEVEL; Value: 107; Range: 98-107; Units: MEQ/L; Status: F Test: CARBON DIOXIDE LEVEL; Value: 28; Range: 21-32; Units: MEQ/L; Status: F Test: ANION GAP; Value: 8; Range: 8-16; Units: MEQ/L; Status: F Test: CALCIUM LEVEL; Value: 9.2; Range: 8.5-10.1; Units: MG/DL; Status: F Test Note: ; Units are mL/min/1.73 m2 Chronic Kidney Disease Staging per NKF: Stage I & II GFR >=60 Normal to Mildly Decreased Stage III GFR 30-59 Moderately Decreased Stage IV GFR 15-29 Severely Decreased Stage V GFR <15 Very Little GFR Left ESRD GFR <15 on MANAGER INVENTORY CONTROL Lab Order: CBC with Diff; SPEC'M 12/07/16 16:09 Test: WHITE BLOOD COUNT; Value: 7.0; Range: 4.0-10.0; Units: K/mm3; Status: F Test: RED BLOOD COUNT; Value: 4.16; Range: 4.00-5.40; Units: M/mm3; Status: F Test: HEMOGLOBIN; Value: 12.1; Range: 12.0-16.0; Units: g/dl; Status: F Test: HEMATOCRIT; Value: 36.9; Range: 36.0-47.0; Units: %; Status: F Test: MEAN CORPUSCULAR VOLUME; Value: 88.9; Range: 80.0-96.0; Units: fl; Status: F Test: MEAN CORPUSCULAR HEMOGLOBIN; Value: 29.0; Range: 27.0-33.0; Units: pg; Status: F Test: MEAN CORPUSCULAR HGB CONC; Value: 32.7; Range: 32.0-36.5; Units: g/dl; Status: F Test: RED CELL DISTRIBUTION WIDTH; Value: 14.9; Range: 11.5-14.5; Abnormal: Above high normal; Units: %; Status: F Test: PLATELET COUNT, AUTOMATED; Value: 312; Range: 150-450; Units: k/mm3; Status: F Test: NEUTROPHILS %; Value: 70.9; Range: 36.0-66.0; Abnormal: Above high normal; Units: %; Status: F Test: LYMPH %; Value: 17.0; Range: 24.0-44.0; Abnormal: Below low normal; Units: %; Status: F Test: MONO %; Value: 8.5; Range: 0.0-5.0; Abnormal: Above high normal; Units: %; Status: F Test: EOS %; Value: 1.9; Range: 0.0-3.0; Units: %; Status: F Test: BASO %; Value: 0.2; Range: 0.0-1.0; Units: %; Status: F Test: LARGE UNSTAINED CELL %; Value: 1.6; Range: 0.0-4.0; Units: %; Status: F Test: NEUTROPHILS #; Value: 5.0; Range: 1.8-7.7; Units: K/mm3; Status: F Test: LYMPH #; Value: 1.3; Range: 1.5-4.5; Abnormal: Below low normal; Units: K/mm3; Status: F Test: MONO #; Value: 0.6; Range: 0.0-0.8; Units: K/mm3; Status: F Test: EOS #; Value: 0.1; Range: 0.0-0.50; Units: K/mm3; Status: F Test: BASO #; Value: 0.0; Range: 0.0-0.2; Units: K/mm3; Status: F Test: LARGE UNSTAINED CELL #; Value: 0.1; Range: 0.0-0.4; Units: K/mm3; Status: F Lab Order: Cardiac Injury Profile; [facility] 12/07/16 16:09 Test: CPK CREATINE PHOSPHOKINASE; Value: 46; Range: 26-192; Units: U/L; Status: F Test: CK-MB VALUE MASS; Value: 1.0; Range: 0.0-3.6; Units: NG/ML; Status: F Test: MB/CK RELATIVE INDEX; Value: 2.17; Range: < OR =4; Status: F Test Note: ; DIAGNOSIS CRITERIA MMB ng/ml Relative Index (RI) NON-AMI < or = 5 N/A [place]URN [place]ONE > 5 < or = 4 AMI > 5 > 4 Lab Order: Troponin; [facility] 12/07/16 16:09 Test: TROPONIN I; Value: < 0.02; Range: < 0.10; Units: NG/ML; Status: F Test Note: ; Troponin I Reference Interval for [employer] LOCI: 99th Percentile= 0.00-0.045 ng/ml Risk Stratification: <= 0.10 ng/ml Decreased Risk for Adverse Clinical Events. 0.10-1.50 ng/ml Increased Risk for Adverse Clinical Events. Evaluation of additional criterion and/or repeat testing in 2-6 hours is suggested to rule out myocardial damage. >= 1.50 ng/ml Indicative of Myocardial Injury. Lab Order: CARDIAC MARKER PANEL; [facility] 12/07/16 20:03 Test: CPK CREATINE PHOSPHOKINASE; Value: 52; Range: 26-192; Units: U/L; Status: F Test: CK-MB VALUE MASS; Value: 1.0; Range: 0.0-3.6; Units: NG/ML; Status: F Test: MB/CK RELATIVE INDEX; Value: 1.92; Range: < OR =4; Status: F Test: TROPONIN I; Value: < 0.02; Range: < 0.10; Units: NG/ML; Status: F Test Note: ; DIAGNOSIS CRITERIA MMB ng/ml Relative Index (RI) NON-AMI < or = 5 N/A COBURN ZONE > 5 < or = 4 AMI > 5 > 4 Radiology Order: EKG-ADULT Test: EKG-ADULT REASON FOR EXAMINATION: Chest Pain; Stationary ECG Study; [facility] ED; ; Test Date: 2016-12-07; Pat Name: [facility] Department:; Room: -; Gender: F Toll Operator: rs; : 1975 Requested By: Vira Wallace; Order Number: [id number] Reading MD: Sergey Pandey; Measurements; Intervals [place]; Rate: 80 P: 38; TN: 170 QRS: 42; QRSD: 88 T: 24; QT: 372; QTc: 430; Interpretive Statements; SINUS RHYTHM; ; Electronically Signed On 12-07-2016 16:59:05 EST by Sergey Pandey; Radiology Order: Chest, 2 View (pa\E\lat) Test: Chest, 2 View (pa\E\lat) REASON FOR EXAMINATION: Chest Pain; Chest x-ray: Two views.; ; History: Chest pain. No comparison study.; ; Findings: The lungs are well inflated and clear. Pleural angles are sharp. EKG; monitoring electrodes overlie the chest. Pulmonary vasculature is not increased.; No significant bony abnormality is seen.; ; Impression:; ; No active disease.; ; ; Signed by; Adrien Moctezuma MD 12/08/2016 02:24 P; Radiology Order: ECG WITH READING ER PHYS Test: ECG WITH READING ER PHYS REASON FOR EXAMINATION: CHEST PAIN; Stationary ECG Study; [facility] ED; ; Test Date: 2016-12-07; Pat Name: [facility] Department:; Room: -; Gender: F Toll Operator: lr; : 1975 Requested By: JHOAN GUY; Order Number: [id number] Reading MD: Sergey Pandey; Measurements; Intervals [place]; Rate: 78 P: 23; TN: 152 QRS: 36; QRSD: 92 T: 23; QT: 378; QTc: 433; Interpretive Statements; SINUS RHYTHM; INCOMPLETE RIGHT BUNDLE BRANCH BLOCK; ; Electronically Signed On 12-08-2016 7:09:26 EST by Sergey Pandey; Radiology Order: ECG WITH READING ER PHYS Test: ECG WITH READING ER PHYS REASON FOR EXAMINATION: Chest Pain; Stationary ECG Study; [facility] - ED; ; Test Date: 2016-12-07; Pat Name: [facility] DONG Department:; Room: -; Gender: F Toll Operator: [email or web address]; : 1975 Requested By: JHOAN GUY; Order Number: [id number] Reading MD: Sergey Pandey; Measurements; Intervals [place]; Rate: 82 P: 28; TN: 152 QRS: 41; QRSD: 90 T: 24; QT: 369; QTc: 431; Interpretive Statements; SINUS RHYTHM; INC. RBBB; Electronically Signed On 12-08-2016 7:10:24 EST by Sergey Pandey; Outcome: 12/07 20:56 Discharge ordered by Provider. ke 21:24 Discharge Assessment: Patient awake, alert and oriented x 3. No cognitive and/or js15 functional deficits noted. Patient verbalized understanding of disposition instructions. patient administered narcotics - yes. Pt provided with safe discharge. The following High Risk Discharge criteria are identified: None. Discharged to home ambulatory, with family. Condition: stable. Discharge instructions given to patient, Instructed on discharge instructions, follow up and referral plans. medication usage, no driving heavy equipment, Demonstrated understanding of instructions, medications, Pt was receptive of discharge instructions/ teaching. Prescriptions given X 2. No special radiology studies were completed. Property sent home with patient. 21:25 Patient left the ED. js15 Signatures: Dispatcher [employer] EDMS Nae Alejandre, Reg Reg Jhoan Cervantes FNP FNP ke Robie, KathleenRN RN jeb3 Vira Corey Theresa, SEWER HAND SEWER HAND tmm1 Lexy Cardenas gr2 Sarah Heath, Mixing Engineer Unit Miranda PuentesRN RN js15 Junie Lynch JessicaRN RN [email or web address] Paola Stuart2 Corrections: (The following items were deleted from the chart) 17:04 17:03 Nitrostat 0.4 mg Sublingual ja5 ja5 17:04 17:04 Nitrostat 0.4 mg Sublingual ja5 ja5 Chart Complete MTDD
--- NOTE | 2016-12-09 22:26 | EDDOCDS ---
Physician Documentation [facility] Name: Scarlett Parker Age: 41 yrs Sex: Female : 1975 Arrival Date: 12/07/2016 Time: 15:19 Bed 6 Private MD: AURORA PIERCE Disposition: 12/07/16 20:56 Discharged to Home/Self Care. Impression: Chest pain, unspecified, Acute pain, not elsewhere classified - dental. - Condition is Stable. - Discharge Instructions: Nonspecific Chest Pain, Dental Pain. - Prescriptions for [place] 5- 325 mg Oral Tablet - take 1 tablet by ORAL route every 6 hours As needed MDD: 4 tabs; 20 tablet. Aspirin 81 mg - take 1 tablet by ORAL route once daily; 90 tablet. - Medication Reconciliation, Local Pharmacy Hours form. - Follow up: Madalyn Murrell; When: Call to arrange an appointment; Reason: Further diagnostic work-up, Recheck today's complaints, Continuance of care. - Problem is new. - Symptoms are unchanged. - Notes: increase metoprolol to 50 mg a day Historical: - Allergies: Cipro PO; Flagyl; Topamax; - Home Meds: 1. metaxalone 800 mg oral tab 1 tab 3 times per day (Last dose: 12/07/2016) 2. metoprolol tartrate 25 mg Oral tab 1 tab once daily (Last dose: 12/07/2016) 3. omeprazole 40 mg Oral cpDR 1 cap once daily (Last dose: 12/07/2016) 4. ibuprofen 800 mg Oral tab as needed (Last dose: 12/07/2016 13:00) 5. penicillin V potassium 500 mg Oral tab 1 tab 4 times per day (Last dose: 12/07/2016) - PMHx: muscle spasms; high heart rate; GERD; Degenerative disc disease; - PSHx: Spinal Fusion; Laparoscopy (December 2016); - Social history: Smoking status: Patient uses tobacco products, current every day smoker. No barriers to communication noted, The patient speaks fluent Greek, Speaks appropriately for age. - Family history: Not pertinent. - : The pt / caregiver states he / she is not on anticoagulants. Home medication list is obtained from the patient. - Exposure Risk Screening:: None identified. 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 2 in. (157.48 cm) (R); Pain 6/10; 15:49 BP 195 / 126 (auto/); ja5 15:49 Pulse 82 MON; Pulse Ox 98% ; ja5 16:07 BP 192 / 113 (auto/); ja5 16:07 Pulse 84 MON; Pulse Ox 97% ; ja5 16:12 Pulse 84 MON; Pulse Ox 97% ; ja5 16:13 BP 174 / 104 (auto/); ja5 16:16 BP 194 / 122 (man/); ja5 16:27 Pulse 78 MON; Pulse Ox 96% ; ja5 16:28 BP 194 / 111 (auto/); ja5 16:42 Pulse 82 MON; Pulse Ox 97% ; ja5 16:43 BP 178 / 112 (auto/); ja5 17:01 BP 158 / 98; ja5 17:05 BP 153 / 78; ja5 17:11 BP 136 / 75; ja5 17:12 BP 136 / 75 Sitting; ja5 17:31 Pulse 80 MON; Pulse Ox 96% ; ja5 17:32 BP 149 / 100 (auto/); ja5 17:48 BP 127 / 56 (auto/); ja5 18:24 BP 118 / 57 (auto/); ja5 18:24 Pulse 104 MON; Pulse Ox 90% ; ja5 18:48 BP 170 / 96 (auto/); js15 18:48 Pulse 86 MON; Pulse Ox 96% ; js15 18:51 Pain 5/10; ja5 18:54 BP 172 / 102 (auto/); js15 18:54 Pulse 80 MON; Pulse Ox 96% ; js15 18:56 BP 172 / 102; Pulse 83; Resp 16; Temp 97.7(O); Pulse Ox 96% on R/A; Pain 5/10; ja5 19:02 BP 175 / 103 (auto/); js15 19:02 Pulse 86 MON; Pulse Ox 97% ; js15 19:17 BP 161 / 101 (auto/); js15 19:17 Pulse 80 MON; Pulse Ox 94% ; js15 19:32 BP 176 / 105 (auto/); js15 19:32 Pulse 74 MON; Pulse Ox 92% ; js15 19:47 BP 161 / 103 (auto/); js15 19:47 Pulse 74 MON; Pulse Ox 94% ; js15 20:02 BP 161 / 105 (auto/); js15 20:02 Pulse 82 MON; Pulse Ox 96% ; js15 20:17 BP 162 / 109 (auto/); js15 20:17 Pulse 80 MON; Pulse Ox 94% ; js15 20:32 BP 172 / 108 (auto/); js15 20:32 Pulse 74 MON; Pulse Ox 95% ; js15 20:47 BP 179 / 105 (auto/); js15 20:47 Pulse 76 MON; Pulse Ox 96% ; js15 21:05 Pulse 82 MON; Resp 20; Temp 100.0; Pulse Ox 97% on R/A; Pain 4/10; js15 21:07 BP 159 / 79 (auto/); js15 15:21 Body Mass Index 31.28 (77.56 kg, 157.48 cm) gr2 MDM: 15:24 ECG WITH READING ER PHYS+CARDIAG ordered. EDMS 15:47 Casino Floor Person/Pulse Ox/q 30 min VS ordered. jc4 15:47 IV Saline Lock ordered. jc4 15:47 Rhythm Strip to chart ordered. jc4 15:47 Undress patient appropriately for examination ordered. jc4 15:47 Basic Metabolic Profile Ordered. EDMS 15:47 CBC with Diff Ordered. EDMS 15:47 Cardiac Injury Profile Ordered. EDMS 15:47 Troponin Ordered. EDMS 16:33 Financial registration complete. gjb 16:33 Nitrostat 0.4 mg Sublingual every 5 minutes; hold if SBP<90mmHg.Document Pain Score ke Response to Each Dose x3 ordered. 16:33 Aspirin 324 mg PO once ordered. ke 16:35 Chest, 2 View (pa\E\lat) Ordered. EDMS 16:37 [facility] Payment Agreement was scanned into [employer] and attached to record. gjb 16:44 CBC with Diff Reviewed. ke 16:44 Basic Metabolic Profile Reviewed. ke 16:44 Cardiac Injury Profile Reviewed. ke 16:44 Troponin Reviewed. ke 17:50 Redraw CIP &Troponin (put time in details section) ordered. ke 17:50 Repeat EKG (put time details section) ordered. ke 17:50 Metoclopramide 10 mg IV at 40 mg/hr once over 15 mins ordered. ke 17:50 morphine 4 mg IVP once ordered. ke 17:54 Repeat EKG (put time details section) complete. ar3 17:55 Redraw CIP &Troponin (put time in details section) complete. ar3 17:55 ECG WITH READING ER PHYS ordered. EDMS 17:56 CARDIAC MARKER PANEL Ordered. EDMS 18:24 EKG-ADULT Reviewed. ke 20:07 ECG WITH READING ER PHYS+CARDIAG ordered. EDMS 20:43 CARDIAC MARKER PANEL Reviewed. ke 12/08 10:45 T-Sheet-- Draft Copy was scanned into [employer] and attached to record. gb 10:46 ECG/EKG was scanned into [employer] and attached to record. gb 10:46 Trend VS was scanned into [employer] and attached to record. gb Administered Medications: 12/07 16:55 Drug: Nitrostat 0.4 mg [Nitrostat 0.4 mg sublingual tablet (1 tabs)] Route: Sublingual; ja5 16:55 Drug: Aspirin 324 mg [aspirin 81 mg chewable tablet (4 tabs)] Route: PO; ja5 17:00 Drug: Nitrostat 0.4 mg [Nitrostat 0.4 mg sublingual tablet (1 tabs)] Route: Sublingual; ja5 17:06 Drug: Nitrostat 0.4 mg [Nitrostat 0.4 mg sublingual tablet (1 tabs)] Route: Sublingual; ja5 17:12 Follow up: BP 136 / 75 Sitting ja5 18:14 Drug: morphine 4 mg [morphine 4 mg/mL intravenous cartridge (1 mL)] Route: IVP; Site: ja5 left antecubital; 18:51 Follow up: Pain 5/10 Adult ja5 18:15 Drug: Metoclopramide 10 mg [metoclopramide 5 mg/mL injection solution] Route: IV; Rate: ja5 40 mg/hr; Infused Over: 15 mins; Site: left antecubital; 18:52 Follow up: IV Status: Completed infusion 5 Signatures: Dispatcher [employer] EDMS Nae Alejandre, Reg Reg gb Jhoan Valerio, SAS ARCHITECT SAS ARCHITECT Kari Jones,RN RN kr3 Jerri Wylie, TRUCK CHAUFFEUR TRUCK CHAUFFEUR ar3 Bernadette Dunbar, RN RN jc4 Miranda Chaudhary,RN RN js15 Junie Lynch Jessica RN ja5 The chart was reviewed and I authenticate all verbal orders and agree with the evaluation and treatment provided.Attachments: 16:37 [facility] Payment Agreement gjb 12/08 10:45 T-Sheet-- Draft Copy gb 10:46 ECG/EKG gb Chart Complete MTDD
--- NOTE | 2016-12-09 22:26 | EDDOCDS ---
Physician Documentation [facility] Name: Scarlett Parker Age: 41 yrs Sex: Female : 1975 Arrival Date: 12/07/2016 Time: 15:19 Bed 6 Private MD: AURORA PIERCE Disposition: 12/07/16 20:56 Discharged to Home/Self Care. Impression: Chest pain, unspecified, Acute pain, not elsewhere classified - dental. - Condition is Stable. - Discharge Instructions: Nonspecific Chest Pain, Dental Pain. - Prescriptions for [place] 5- 325 mg Oral Tablet - take 1 tablet by ORAL route every 6 hours As needed MDD: 4 tabs; 20 tablet. Aspirin 81 mg - take 1 tablet by ORAL route once daily; 90 tablet. - Medication Reconciliation, Local Pharmacy Hours form. - Follow up: Madalyn Murrell; When: Call to arrange an appointment; Reason: Further diagnostic work-up, Recheck today's complaints, Continuance of care. - Problem is new. - Symptoms are unchanged. - Notes: increase metoprolol to 50 mg a day Historical: - Allergies: Cipro PO; Flagyl; Topamax; - Home Meds: 1. metaxalone 800 mg oral tab 1 tab 3 times per day (Last dose: 12/07/2016) 2. metoprolol tartrate 25 mg Oral tab 1 tab once daily (Last dose: 12/07/2016) 3. omeprazole 40 mg Oral cpDR 1 cap once daily (Last dose: 12/07/2016) 4. ibuprofen 800 mg Oral tab as needed (Last dose: 12/07/2016 13:00) 5. penicillin V potassium 500 mg Oral tab 1 tab 4 times per day (Last dose: 12/07/2016) - PMHx: muscle spasms; high heart rate; GERD; Degenerative disc disease; - PSHx: Spinal Fusion; Laparoscopy (December 2016); - Social history: Smoking status: Patient uses tobacco products, current every day smoker. No barriers to communication noted, The patient speaks fluent Wolof, Speaks appropriately for age. - Family history: Not pertinent. - : The pt / caregiver states he / she is not on anticoagulants. Home medication list is obtained from the patient. - Exposure Risk Screening:: None identified. 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 2 in. (157.48 cm) (R); Pain 6/10; 15:49 BP 195 / 126 (auto/); ja5 15:49 Pulse 82 MON; Pulse Ox 98% ; ja5 16:07 BP 192 / 113 (auto/); ja5 16:07 Pulse 84 MON; Pulse Ox 97% ; ja5 16:12 Pulse 84 MON; Pulse Ox 97% ; ja5 16:13 BP 174 / 104 (auto/); ja5 16:16 BP 194 / 122 (man/); ja5 16:27 Pulse 78 MON; Pulse Ox 96% ; ja5 16:28 BP 194 / 111 (auto/); ja5 16:42 Pulse 82 MON; Pulse Ox 97% ; ja5 16:43 BP 178 / 112 (auto/); ja5 17:01 BP 158 / 98; ja5 17:05 BP 153 / 78; ja5 17:11 BP 136 / 75; ja5 17:12 BP 136 / 75 Sitting; ja5 17:31 Pulse 80 MON; Pulse Ox 96% ; ja5 17:32 BP 149 / 100 (auto/); ja5 17:48 BP 127 / 56 (auto/); ja5 18:24 BP 118 / 57 (auto/); ja5 18:24 Pulse 104 MON; Pulse Ox 90% ; ja5 18:48 BP 170 / 96 (auto/); js15 18:48 Pulse 86 MON; Pulse Ox 96% ; js15 18:51 Pain 5/10; ja5 18:54 BP 172 / 102 (auto/); js15 18:54 Pulse 80 MON; Pulse Ox 96% ; js15 18:56 BP 172 / 102; Pulse 83; Resp 16; Temp 97.7(O); Pulse Ox 96% on R/A; Pain 5/10; ja5 19:02 BP 175 / 103 (auto/); js15 19:02 Pulse 86 MON; Pulse Ox 97% ; js15 19:17 BP 161 / 101 (auto/); js15 19:17 Pulse 80 MON; Pulse Ox 94% ; js15 19:32 BP 176 / 105 (auto/); js15 19:32 Pulse 74 MON; Pulse Ox 92% ; js15 19:47 BP 161 / 103 (auto/); js15 19:47 Pulse 74 MON; Pulse Ox 94% ; js15 20:02 BP 161 / 105 (auto/); js15 20:02 Pulse 82 MON; Pulse Ox 96% ; js15 20:17 BP 162 / 109 (auto/); js15 20:17 Pulse 80 MON; Pulse Ox 94% ; js15 20:32 BP 172 / 108 (auto/); js15 20:32 Pulse 74 MON; Pulse Ox 95% ; js15 20:47 BP 179 / 105 (auto/); js15 20:47 Pulse 76 MON; Pulse Ox 96% ; js15 21:05 Pulse 82 MON; Resp 20; Temp 100.0; Pulse Ox 97% on R/A; Pain 4/10; js15 21:07 BP 159 / 79 (auto/); js15 15:21 Body Mass Index 31.28 (77.56 kg, 157.48 cm) gr2 MDM: 15:24 ECG WITH READING ER PHYS+CARDIAG ordered. EDMS 15:47 Counseling Psychologist/Pulse Ox/q 30 min VS ordered. jc4 15:47 IV Saline Lock ordered. jc4 15:47 Rhythm Strip to chart ordered. jc4 15:47 Undress patient appropriately for examination ordered. jc4 15:47 Basic Metabolic Profile Ordered. EDMS 15:47 CBC with Diff Ordered. EDMS 15:47 Cardiac Injury Profile Ordered. EDMS 15:47 Troponin Ordered. EDMS 16:33 Financial registration complete. gjb 16:33 Nitrostat 0.4 mg Sublingual every 5 minutes; hold if SBP<90mmHg.Document Pain Score ke Response to Each Dose x3 ordered. 16:33 Aspirin 324 mg PO once ordered. ke 16:35 Chest, 2 View (pa\E\lat) Ordered. EDMS 16:37 [facility] Payment Agreement was scanned into [employer] and attached to record. gjb 16:44 CBC with Diff Reviewed. ke 16:44 Basic Metabolic Profile Reviewed. ke 16:44 Cardiac Injury Profile Reviewed. ke 16:44 Troponin Reviewed. ke 17:50 Redraw CIP &Troponin (put time in details section) ordered. ke 17:50 Repeat EKG (put time details section) ordered. ke 17:50 Metoclopramide 10 mg IV at 40 mg/hr once over 15 mins ordered. ke 17:50 morphine 4 mg IVP once ordered. ke 17:54 Repeat EKG (put time details section) complete. ar3 17:55 Redraw CIP &Troponin (put time in details section) complete. ar3 17:55 ECG WITH READING ER PHYS ordered. EDMS 17:56 CARDIAC MARKER PANEL Ordered. EDMS 18:24 EKG-ADULT Reviewed. ke 20:07 ECG WITH READING ER PHYS+CARDIAG ordered. EDMS 20:43 CARDIAC MARKER PANEL Reviewed. ke 12/08 10:45 T-Sheet-- Draft Copy was scanned into [employer] and attached to record. gb 10:46 ECG/EKG was scanned into [employer] and attached to record. gb 10:46 Trend VS was scanned into [employer] and attached to record. gb Administered Medications: 12/07 16:55 Drug: Nitrostat 0.4 mg [Nitrostat 0.4 mg sublingual tablet (1 tabs)] Route: Sublingual; ja5 16:55 Drug: Aspirin 324 mg [aspirin 81 mg chewable tablet (4 tabs)] Route: PO; ja5 17:00 Drug: Nitrostat 0.4 mg [Nitrostat 0.4 mg sublingual tablet (1 tabs)] Route: Sublingual; ja5 17:06 Drug: Nitrostat 0.4 mg [Nitrostat 0.4 mg sublingual tablet (1 tabs)] Route: Sublingual; ja5 17:12 Follow up: BP 136 / 75 Sitting ja5 18:14 Drug: morphine 4 mg [morphine 4 mg/mL intravenous cartridge (1 mL)] Route: IVP; Site: ja5 left antecubital; 18:51 Follow up: Pain 5/10 Adult ja5 18:15 Drug: Metoclopramide 10 mg [metoclopramide 5 mg/mL injection solution] Route: IV; Rate: ja5 40 mg/hr; Infused Over: 15 mins; Site: left antecubital; 18:52 Follow up: IV Status: Completed infusion 5 Signatures: Dispatcher [employer] EDMS Nae Alejandre, Reg Reg gb Jhoan Valerio, INTERACTIVE PRODUCER INTERACTIVE PRODUCER Kari Jones,RN RN kr3 Jerri Wylie, TIRE TESTER TIRE TESTER ar3 Bernadette Dunbar, RN RN jc4 Miranda Chaudhary,RN RN js15 Junie Lynch Jessica RN ja5 The chart was reviewed and I authenticate all verbal orders and agree with the evaluation and treatment provided.Attachments: 16:37 [facility] Payment Agreement gjb 12/08 10:45 T-Sheet-- Draft Copy gb 10:46 ECG/EKG gb Chart Complete MTDD
== END 2016-12-07 21:25 | disposition home or self-care (01) ==
LOC: M ED 15:19
DX: R07.89 Other chest pain (principal); K08.89 Other specified disorders of teeth and supporting structures; K21.9 Gastro-esophageal reflux disease without esophagitis; M62.838 Other muscle spasm; Z79.899 Other long term (current) drug therapy; Z79.2 Long term (current) use of antibiotics; Z88.1 Allergy status to other antibiotic agents; Z88.8 Allergy status to other drugs, medicaments and biological substances; Z88.3 Allergy status to other anti-infective agents; F17.210 Nicotine dependence, cigarettes, uncomplicated
CPT/HCPCS: 71020; 80048; 82550; 82553; 84484; 85025; 93005; 93041; 96365; 96375; 99285; J2765

== ENCOUNTER 2016-12-21 11:04 | Emergency (ER) | payer OTHER, MEDICARE ==
[2016-12-21] MEDS ORDERED: PERCOCET 5MG/325MG TAB As Ordered ONE (11:58)
[2016-12-21] MEDS ORDERED: predniSONE 20 MG TAB As Ordered ONE (11:58)
--- NOTE | 2016-12-21 13:07 | EDDOCDS ---
Physician Documentation [facility] Name: Scarlett Parker Age: 41 yrs Sex: Female : 1975 Arrival Date: 12/21/2016 Time: 11:04 Bed I6 / 28 Private MD: AURORA PIERCE Disposition: 12/21/16 12:41 Discharged to Home/Self Care. Impression: Low back pain - Acute. - Condition is Stable. - Discharge Instructions: Back Pain, Adult, Diie-ky-Maru. - Prescriptions for Percocet 5- 325 mg Oral Tablet - take 1 tablet by ORAL route every 6 hours As needed MDD: 4 tabs; 20 tablet. Prednisone 20 mg Oral Tablet - take 3 tablet by ORAL route once daily for 5 days; 15 tablet. Valium 10 mg Oral Tablet - take 1 tablet by ORAL route every 8 hours As needed MDD: 3 tabs; 20 tablet. Mobic 7.5 mg Oral Tablet - take 1 tablet by ORAL route once daily take with food; 20 tablet. - Medication Reconciliation, Local Pharmacy Hours form. - Follow up: AURORA PIERCE; When: 1 - 2 days; Reason: Recheck today's complaints, Continuance of care. Follow up: Emergency Department; Reason: Worsening of conditions. - Problem is new. - Symptoms have improved. - Notes: Pt understands to f/u with Neurosurgeon in [place] or here sooner if s/s worsen. Historical: - Allergies: Cipro PO; Flagyl; Topamax; - Home Meds: 1. ibuprofen 800 mg Oral tab as needed (Last dose: 12/21/2016 10:30) 2. metaxalone 800 mg oral tab 1 tab 3 times per day (Last dose: 12/21/2016 10:30) 3. metoprolol tartrate 50 mg oral tab once daily (Last dose: 12/21/2016 10:30) 4. omeprazole 40 mg Oral cpDR 1 cap once daily (Last dose: 12/21/2016 10:30) 5. penicillin V potassium 500 mg Oral tab 1 tab 4 times per day 6. aspirin 81 mg Oral chew 1 tab once daily - PMHx: Degenerative disc disease; GERD; high heart rate; muscle spasms; - PSHx: Spinal Fusion; Laparoscopy (December 2016); - Social history: Smoking status: Patient uses tobacco products, current every day smoker. No barriers to communication noted, The patient speaks fluent Indonesian, Speaks appropriately for age. - Family history: Not pertinent. - : The pt / caregiver states he / she is not on anticoagulants. Home medication list is obtained from the patient. - Exposure Risk Screening:: None identified. PNEUMATIC TESTER: 12/21 11:11 LMP 12/04/2016 [facility] Vital Signs: 11:05 BP 145 / 89; Pulse 94; Resp 18; Temp 97.4; Pulse Ox 97% ; Weight 76.66 kg / 169.01 lbs; jlm Height 5 ft. 2 in. (157.48 cm); Pain 7/10; 13:04 BP 168 / 97; Pulse 70; Resp 18; Temp 98.7; Pulse Ox 94% on R/A; Pain 5/10; pml 13:05 Pain 5/10; pml 11:05 Body Mass Index 30.91 (76.66 kg, 157.48 cm) [facility] MDM: 11:55 Diazepam 10 mg IM once ordered. ef1 11:55 predniSONE 60 mg PO once; administer with food or milk ordered. ef1 11:55 oxyCODONE-acetaminophen 5 mg-325 mg 2 tabs PO once ordered. ef1 11:55 Ice Pack ordered. ef1 12:36 [facility] Payment Agreement was scanned into [employer] and attached to record. jp5 12:37 Financial registration complete. jp5 Administered Medications: 12:05 Drug: oxyCODONE-acetaminophen 2 tabs [oxycodone-acetaminophen 5 mg-325 mg tablet (2 dls tabs)] Route: PO; 13:05 Follow up: Response: Pain is decreased pml 12:06 Drug: Diazepam 10 mg [diazepam 5 mg/mL injection syringe (2 mL)] Route: IM; Site: right dls gluteus; 13:05 Follow up: Pain 5/10 Adult; Response: Confirmed pt not driving.; Pain is decreased pml 12:06 Drug: predniSONE 60 mg [prednisone 20 mg tablet (3 tabs)] Route: PO; dls Signatures: Iqra Cruz RN RN srm Nery Mccabe RN RN dls Cori Zaragoza, JOHANNC PANusratC ef1 Alicia Mercado RN RN pml Ronal Real jp5 The chart was reviewed and I authenticate all verbal orders and agree with the evaluation and treatment provided.Attachments: 12:36 [facility] Payment Agreement jp5 MTDD
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
--- NOTE | 2016-12-23 14:07 | EDDOCDS ---
Physician Documentation [facility] Name: Scarlett Parker Age: 41 yrs Sex: Female : 1975 Arrival Date: 12/21/2016 Time: 11:04 Bed I6 / 28 Private MD: AURORA PIERCE Disposition: 12/21/16 12:41 Discharged to Home/Self Care. Impression: Low back pain - Acute. - Condition is Stable. - Discharge Instructions: Back Pain, Adult, [id number]. - Prescriptions for Percocet 5- 325 mg Oral Tablet - take 1 tablet by ORAL route every 6 hours As needed MDD: 4 tabs; 20 tablet. Prednisone 20 mg Oral Tablet - take 3 tablet by ORAL route once daily for 5 days; 15 tablet. Valium 10 mg Oral Tablet - take 1 tablet by ORAL route every 8 hours As needed MDD: 3 tabs; 20 tablet. Mobic 7.5 mg Oral Tablet - take 1 tablet by ORAL route once daily take with food; 20 tablet. - Medication Reconciliation, Local Pharmacy Hours form. - Follow up: AURORA PIERCE; When: 1 - 2 days; Reason: Recheck today's complaints, Continuance of care. Follow up: Emergency Department; Reason: Worsening of conditions. - Problem is new. - Symptoms have improved. - Notes: Pt understands to f/u with Neurosurgeon in [place] or here sooner if s/s worsen. Historical: - Allergies: Cipro PO; Flagyl; Topamax; - Home Meds: 1. ibuprofen 800 mg Oral tab as needed (Last dose: 12/21/2016 10:30) 2. metaxalone 800 mg oral tab 1 tab 3 times per day (Last dose: 12/21/2016 10:30) 3. metoprolol tartrate 50 mg oral tab once daily (Last dose: 12/21/2016 10:30) 4. omeprazole 40 mg Oral cpDR 1 cap once daily (Last dose: 12/21/2016 10:30) 5. penicillin V potassium 500 mg Oral tab 1 tab 4 times per day 6. aspirin 81 mg Oral chew 1 tab once daily - PMHx: Degenerative disc disease; GERD; high heart rate; muscle spasms; - PSHx: Spinal Fusion; Laparoscopy (December 2016); - Social history: Smoking status: Patient uses tobacco products, current every day smoker. No barriers to communication noted, The patient speaks fluent Lao, Speaks appropriately for age. - Family history: Not pertinent. - : The pt / caregiver states he / she is not on anticoagulants. Home medication list is obtained from the patient. - Exposure Risk Screening:: None identified. 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 2 in. (157.48 cm); Pain 7/10; 13:04 BP 168 / 97; Pulse 70; Resp 18; Temp 98.7; Pulse Ox 94% on R/A; Pain 5/10; pml 13:05 Pain 5/10; pml 11:05 Body Mass Index 30.91 (76.66 kg, 157.48 cm) [facility] MDM: 11:55 Diazepam 10 mg IM once ordered. ef1 11:55 predniSONE 60 mg PO once; administer with food or milk ordered. ef1 11:55 oxyCODONE-acetaminophen 5 mg-325 mg 2 tabs PO once ordered. ef1 11:55 Ice Pack ordered. ef1 12:36 [facility] Payment Agreement was scanned into [employer] and attached to record. jp5 12:37 Financial registration complete. 5 17:05 T-Sheet-- Draft Copy was scanned into [employer] and attached to record. klr Administered Medications: 12:05 Drug: oxyCODONE-acetaminophen 2 tabs [oxycodone-acetaminophen 5 mg-325 mg tablet (2 dls tabs)] Route: PO; 13:05 Follow up: Response: Pain is decreased pml 12:06 Drug: Diazepam 10 mg [diazepam 5 mg/mL injection syringe (2 mL)] Route: IM; Site: right dls gluteus; 13:05 Follow up: Pain 5/10 Adult; Response: Confirmed pt not driving.; Pain is decreased pml 12:06 Drug: predniSONE 60 mg [prednisone 20 mg tablet (3 tabs)] Route: PO; dls Signatures: Iqra Cruz RN RN srm Nery Mccabe RN RN dls Cori Zaragoza PA-C JOSE LUIS ef1 Alicia Mercado,RN RN Ronal Savage jp5 Rubina Veliz The chart was reviewed and I authenticate all verbal orders and agree with the evaluation and treatment provided.Attachments: 12:36 [facility] Payment Agreement jp5 17:05 T-Sheet-- Draft Copy klr Chart Complete MTDD
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
--- NOTE | 2016-12-23 14:07 | EDDOCDS ---
Physician Documentation [facility] Name: Scarlett Parker Age: 41 yrs Sex: Female : 1975 Arrival Date: 12/21/2016 Time: 11:04 Bed I6 / 28 Private MD: AURORA PIERCE Disposition: 12/21/16 12:41 Discharged to Home/Self Care. Impression: Low back pain - Acute. - Condition is Stable. - Discharge Instructions: Back Pain, Adult, [id number]. - Prescriptions for Percocet 5- 325 mg Oral Tablet - take 1 tablet by ORAL route every 6 hours As needed MDD: 4 tabs; 20 tablet. Prednisone 20 mg Oral Tablet - take 3 tablet by ORAL route once daily for 5 days; 15 tablet. Valium 10 mg Oral Tablet - take 1 tablet by ORAL route every 8 hours As needed MDD: 3 tabs; 20 tablet. Mobic 7.5 mg Oral Tablet - take 1 tablet by ORAL route once daily take with food; 20 tablet. - Medication Reconciliation, Local Pharmacy Hours form. - Follow up: AURORA PIERCE; When: 1 - 2 days; Reason: Recheck today's complaints, Continuance of care. Follow up: Emergency Department; Reason: Worsening of conditions. - Problem is new. - Symptoms have improved. - Notes: Pt understands to f/u with Neurosurgeon in [place] or here sooner if s/s worsen. Historical: - Allergies: Cipro PO; Flagyl; Topamax; - Home Meds: 1. ibuprofen 800 mg Oral tab as needed (Last dose: 12/21/2016 10:30) 2. metaxalone 800 mg oral tab 1 tab 3 times per day (Last dose: 12/21/2016 10:30) 3. metoprolol tartrate 50 mg oral tab once daily (Last dose: 12/21/2016 10:30) 4. omeprazole 40 mg Oral cpDR 1 cap once daily (Last dose: 12/21/2016 10:30) 5. penicillin V potassium 500 mg Oral tab 1 tab 4 times per day 6. aspirin 81 mg Oral chew 1 tab once daily - PMHx: Degenerative disc disease; GERD; high heart rate; muscle spasms; - PSHx: Spinal Fusion; Laparoscopy (December 2016); - Social history: Smoking status: Patient uses tobacco products, current every day smoker. No barriers to communication noted, The patient speaks fluent Belarusian, Speaks appropriately for age. - Family history: Not pertinent. - : The pt / caregiver states he / she is not on anticoagulants. Home medication list is obtained from the patient. - Exposure Risk Screening:: None identified. 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 2 in. (157.48 cm); Pain 7/10; 13:04 BP 168 / 97; Pulse 70; Resp 18; Temp 98.7; Pulse Ox 94% on R/A; Pain 5/10; pml 13:05 Pain 5/10; pml 11:05 Body Mass Index 30.91 (76.66 kg, 157.48 cm) [facility] MDM: 11:55 Diazepam 10 mg IM once ordered. ef1 11:55 predniSONE 60 mg PO once; administer with food or milk ordered. ef1 11:55 oxyCODONE-acetaminophen 5 mg-325 mg 2 tabs PO once ordered. ef1 11:55 Ice Pack ordered. ef1 12:36 [facility] Payment Agreement was scanned into [employer] and attached to record. jp5 12:37 Financial registration complete. 5 17:05 T-Sheet-- Draft Copy was scanned into [employer] and attached to record. klr Administered Medications: 12:05 Drug: oxyCODONE-acetaminophen 2 tabs [oxycodone-acetaminophen 5 mg-325 mg tablet (2 dls tabs)] Route: PO; 13:05 Follow up: Response: Pain is decreased pml 12:06 Drug: Diazepam 10 mg [diazepam 5 mg/mL injection syringe (2 mL)] Route: IM; Site: right dls gluteus; 13:05 Follow up: Pain 5/10 Adult; Response: Confirmed pt not driving.; Pain is decreased pml 12:06 Drug: predniSONE 60 mg [prednisone 20 mg tablet (3 tabs)] Route: PO; dls Signatures: Iqra Cruz RN RN srm Nery Mccabe RN RN dls Cori Zaragoza PA-C JOSE LUIS ef1 Alicia Mercado,RN RN Ronal Savage jp5 Rubina Veliz The chart was reviewed and I authenticate all verbal orders and agree with the evaluation and treatment provided.Attachments: 12:36 [facility] Payment Agreement jp5 17:05 T-Sheet-- Draft Copy klr Chart Complete MTDD
== END 2016-12-21 13:06 | disposition home or self-care (01) ==
LOC: M ED 11:04
DX: M54.5 Low back pain (principal); M51.9 Unspecified thoracic, thoracolumbar and lumbosacral intervertebral disc disorder; K21.9 Gastro-esophageal reflux disease without esophagitis; M62.838 Other muscle spasm; R00.0 Tachycardia, unspecified; Z79.899 Other long term (current) drug therapy; Z79.82 Long term (current) use of aspirin; Z79.2 Long term (current) use of antibiotics; Z88.1 Allergy status to other antibiotic agents; Z88.8 Allergy status to other drugs, medicaments and biological substances; Z88.3 Allergy status to other anti-infective agents; F17.200 Nicotine dependence, unspecified, uncomplicated
CPT/HCPCS: 96372; 99283; J3360

== ENCOUNTER 2017-04-02 20:33 | Emergency (ER) | payer MEDICARE, OTHER ==
[~2017-04-02] VITALS: Ht 157.5 cm; Wt 73.0 kg
[2017-04-02] MEDS ORDERED: AMIT10TA PO (20:44)
[2017-04-02] MEDS ORDERED: [UNRECOGNIZED DRUG - OTHER] PO (20:44)
[2017-04-02] MEDS ORDERED: CYMB60CA3 PO (20:44)
[2017-04-02] MEDS ORDERED: [UNRECOGNIZED DRUG - OTHER] PO (20:45)
[2017-04-02] MEDS ORDERED: NS 1,000 ML IV ONE (21:30)
[2017-04-02] MEDS ORDERED: ONDANSETRON 4MG/2ML VIAL (J2405) IV ONE (21:30)
[2017-04-02] MEDS ORDERED: KETOROLAC 30 MG/ML VIAL (J1885) IV ONE (21:30)
[2017-04-02] MEDS ORDERED: MORPHINE 2 MG/ML 1ML SYRINGE IV PRN (21:30)
[2017-04-02 21:57] LABS: BASO % 0.3 % (0.0-1.0); EOS # 0.1 K/mm3 (0.0-0.50); EOS % 1.6 % (0.0-3.0); LARGE UNSTAINED CELL # 0.2 K/mm3 (0.0-0.4); LARGE UNSTAINED CELL % 2.8 % (0.0-4.0); LYMPH # 1.6 K/mm3 (1.5-4.5); LYMPH % 23.1 % (24.0-44.0); MEAN CORPUSCULAR HGB CONC 31.8 g/dl (32.0-36.5); MEAN CORPUSCULAR VOLUME 84.8 fl (80.0-96.0); MONO # 0.5 K/mm3 (0.0-0.8); MONO % 7.8 % (0.0-5.0); NEUTROPHILS % 64.4 % (36.0-66.0); PLATELET COUNT, AUTOMATED 359 k/mm3 (150-450); WHITE BLOOD COUNT 6.2 K/mm3 (4.0-10.0)
--- NOTE | 2017-04-02 22:10 | REPUSA ---
Clinical history: Right upper quadrant pain. Findings: The pancreas is limited in visualization secondary to overlying bowel gas, but appears jarek sly unremarkable. The liver demonstrates uniform echotexture and echogenicity, with no mass lesions. The gallbladder is unremarkable. The common bile duct measures 4 mm and is within normal limits.. The right kidney measures 11.7 x 5.5 x 4.3 cm and is grossly unremarkable. A partially duplicated right renal collecting system is noted. There is no evidence of hydronephrosis or nephrolithiasis. There i s no ascites. Impression: Unremarkable ultrasound examination of the right upper quadrant.
[2017-04-02 22:16] VITALS: BP 149/91
[2017-04-02 22:17] LABS: CONTROL LINE HCG INT CTR LINE PRESENT
[2017-04-02 22:25] LABS: ALBUMIN 3.2 GM/DL (3.2-5.2); ALBUMIN/GLOBULIN RATIO 0.94 (1.00-1.93); ALKALINE PHOSPHATASE 67 U/L (45-117); ALT/SGPT 15 U/L (12-78); AMYLASE 55 U/L (25-115); ANION GAP 7 MEQ/L (8-16); AST/SGOT 14 U/L (15-37); BILIRUBIN,DIRECT < 0.1 MG/DL (0.0-0.2); BILIRUBIN,TOTAL 0.3 MG/DL (0.2-1.0); BLOOD UREA NITROGEN 11 MG/DL (7-18); CALCIUM LEVEL 8.1 MG/DL (8.5-10.1); CARBON DIOXIDE LEVEL 28 MEQ/L (21-32); CHLORIDE LEVEL 104 MEQ/L (98-107); CREATININE FOR GFR 0.74 MG/DL (0.55-1.02); GLOMERULAR FILTRATION RATE > 60.0 (>58); GLUCOSE, FASTING 87 MG/DL (70-105); POTASSIUM SERUM 3.7 MEQ/L (3.5-5.1); SODIUM LEVEL 139 MEQ/L (136-145); TOTAL PROTEIN 6.6 GM/DL (6.4-8.2)
[2017-04-02] MEDS ORDERED: ZOFR4TAB3 PO (23:03)
[2017-04-02] MEDS ORDERED: NORCOTAB PO (23:03)
[2017-04-02] MEDS ORDERED: OXYCODONE/APAP 5MG/325MG(BULK FOR ED) 1 TABLET PO ONE (23:15)
== END 2017-04-02 23:16 | disposition home or self-care (01) ==
LOC: M ED 21:29
DX: R10.9 Unspecified abdominal pain (principal); R11.10 Vomiting, unspecified; I10 Essential (primary) hypertension; G89.29 Other chronic pain; F17.200 Nicotine dependence, unspecified, uncomplicated; Z88.1 Allergy status to other antibiotic agents; Z88.8 Allergy status to other drugs, medicaments and biological substances; Z79.899 Other long term (current) drug therapy
CPT/HCPCS: 76705; 80048; 80076; 81001; 82150; 83690; 84703; 85025; 87088; 87186; 96361; 96374; 96375; 99283; J1885; J2405

== ENCOUNTER 2017-04-25 19:03 | Emergency (ER) | payer MEDICARE, OTHER ==
[~2017-04-25] VITALS: Ht 157.5 cm; Wt 84.7 kg
[~2017-04-25 19:03] MED LIST changes: +AMIT10TA PO; +CYMB60CA3 PO; -METO12TA PO; +METO1TAB87 PO; +NORCOTAB PO; -SKEL-29 PO; +SKEL800T97 PO; +ZOFR4TAB3 PO; +[UNRECOGNIZED DRUG - OTHER] PO; +[UNRECOGNIZED DRUG - OTHER] PO
[2017-04-25] MEDS ORDERED: TIZA6CAP3 PO (19:18)
[2017-04-25] MEDS ORDERED: PREG50CA PO (19:18)
[2017-04-25] MEDS ORDERED: MORPHINE 4 MG/ML 1ML SYRINGE IV PRN (20:30)
[2017-04-25] MEDS ORDERED: NS 1,000 ML IV ONE (20:30)
[2017-04-25] MEDS ORDERED: ONDANSETRON 4MG/2ML VIAL (J2405) IV ONE (20:30)
[2017-04-25 20:46] LABS: BASO % 0.3 % (0.0-1.0); EOS # 0.2 K/mm3 (0.0-0.50); EOS % 1.9 % (0.0-3.0); LARGE UNSTAINED CELL # 0.1 K/mm3 (0.0-0.4); LARGE UNSTAINED CELL % 1.6 % (0.0-4.0); LYMPH # 2.1 K/mm3 (1.5-4.5); LYMPH % 23.7 % (24.0-44.0); MEAN CORPUSCULAR HEMOGLOBIN 26.2 pg (27.0-33.0); MEAN CORPUSCULAR HGB CONC 31.5 g/dl (32.0-36.5); MONO # 0.5 K/mm3 (0.0-0.8); MONO % 6.3 % (0.0-5.0); NEUTROPHILS # 5.6 K/mm3 (1.8-7.7); NEUTROPHILS % 66.2 % (36.0-66.0); PLATELET COUNT, AUTOMATED 395 k/mm3 (150-450); RED CELL DISTRIBUTION WIDTH 15.5 % (11.5-14.5); WHITE BLOOD COUNT 8.4 K/mm3 (4.0-10.0)
[2017-04-25 21:06] VITALS: BP 142/86
[2017-04-25 21:10] LABS: ALBUMIN 3.7 GM/DL (3.2-5.2); ALBUMIN/GLOBULIN RATIO 0.88 (1.00-1.93); ALKALINE PHOSPHATASE 81 U/L (45-117); ALT/SGPT 21 U/L (12-78); AMYLASE 41 U/L (25-115); ANION GAP 8 MEQ/L (8-16); AST/SGOT 22 U/L (15-37); BILIRUBIN,DIRECT < 0.1 MG/DL (0.0-0.2); BILIRUBIN,TOTAL 0.4 MG/DL (0.2-1.0); BLOOD UREA NITROGEN 13 MG/DL (7-18); CARBON DIOXIDE LEVEL 28 MEQ/L (21-32); CHLORIDE LEVEL 103 MEQ/L (98-107); CREATININE FOR GFR 0.81 MG/DL (0.55-1.02); GLOMERULAR FILTRATION RATE > 60.0 (>58); GLUCOSE, FASTING 91 MG/DL (70-105); POTASSIUM SERUM 3.4 MEQ/L (3.5-5.1); SODIUM LEVEL 139 MEQ/L (136-145); TOTAL PROTEIN 7.9 GM/DL (6.4-8.2)
[2017-04-25] MEDS ORDERED: ISOVUE-370 76% 100ML VIAL (Q9967) As Ordered ONE (21:12)
[2017-04-25] MEDS ORDERED: KETOROLAC 30 MG/ML VIAL (J1885) IV ONE (21:15)
--- NOTE | 2017-04-25 22:00 | REPUSA ---
CT of the abdomen and pelvis with contrast Clinical statement: Pain. Technique: Multiple axial CT images were obtained from the base of the lungs through the floor of the pelvis utilizing 5 mm axial slices after administration of nonionic intravenous contrast. Coronal an d sagittal reconstructions were also obtained. No comparison is available. Findings: Chest: The visualized lung bases are clear. Abdomen: The liver, spleen, pancreas, kidneys, gallbladder, and adrenal glands are unremarkable. The aorta is within normal limits. There is no evidence of abdominal lymphadenopathy or ascites. Pelvis: The bowel is unremarkable, with no obstructive or inflammatory changes. The urinary bladder i s within normal limits. The other pelvic structures appear grossly intact. There is no evidence of pe lvic lymphadenopathy or ascites. Bones: There are no suspicious osseous abnormalities seen. Lumbosacral fusion changes from L4 through S1 are intact. Impression: Unremarkable CT examination of the abdomen and pelvis.
[2017-04-25] MEDS ORDERED: NAPR500T PO (22:22)
[2017-04-25] MEDS ORDERED: OMEP40CA2 PO (22:22)
== END 2017-04-25 22:47 | disposition home or self-care (01) ==
LOC: M ED 20:53
DX: K29.70 Gastritis, unspecified, without bleeding (principal); S39.011A Strain of muscle, fascia and tendon of abdomen, initial encounter; X58.XXXA Exposure to other specified factors, initial encounter; Y92.9 Unspecified place or not applicable; Y93.9 Activity, unspecified; Y99.8 Other external cause status; I10 Essential (primary) hypertension; E66.9 Obesity, unspecified; F41.9 Anxiety disorder, unspecified; F32.9 Major depressive disorder, single episode, unspecified; F43.10 Post-traumatic stress disorder, unspecified; F17.200 Nicotine dependence, unspecified, uncomplicated; Z98.1 Arthrodesis status; Z79.899 Other long term (current) drug therapy; Z88.1 Allergy status to other antibiotic agents; Z88.8 Allergy status to other drugs, medicaments and biological substances
CPT/HCPCS: 74177; 80048; 80076; 81001; 81025; 82150; 83690; 85025; 96361; 96374; 96375; 99284; J1885; J2405; Q9967

== ENCOUNTER 2018-01-22 19:27 | Emergency (ER) | payer MEDICARE, OTHER ==
[2018-01-22] MEDS: KETOROLAC 60 MG/2 ML VIAL (J1885) IM (21:53)
== END 2018-01-22 22:42 | disposition home or self-care (01) ==
LOC: M ED 19:27
DX: G43.909 Migraine, unspecified, not intractable, without status migrainosus (principal); Z79.899 Other long term (current) drug therapy; Z88.1 Allergy status to other antibiotic agents; Z88.8 Allergy status to other drugs, medicaments and biological substances
CPT/HCPCS: J1885

== ENCOUNTER → 2018-07-01 | Outpatient (CLI) | payer OTHER | LOC: M PAIN 14:30 | DX: M54.2 Cervicalgia (principal); F41.9 Anxiety disorder, unspecified; F32.9 Major depressive disorder, single episode, unspecified; E78.5 Hyperlipidemia, unspecified; I10 Essential (primary) hypertension; F43.10 Post-traumatic stress disorder, unspecified; F17.200 Nicotine dependence, unspecified, uncomplicated; Z79.899 Other long term (current) drug therapy; Z88.8 Allergy status to other drugs, medicaments and biological substances | CPT/HCPCS: G0463 ==

== ENCOUNTER → 2018-07-28 | Outpatient (CLI) | payer MEDICARE, OTHER | LOC: M PAIN 11:00 | DX: M54.2 Cervicalgia (principal); M79.1 Myalgia; F41.9 Anxiety disorder, unspecified; F32.9 Major depressive disorder, single episode, unspecified; E78.5 Hyperlipidemia, unspecified; I10 Essential (primary) hypertension; Z79.899 Other long term (current) drug therapy; Z88.8 Allergy status to other drugs, medicaments and biological substances | CPT/HCPCS: G0463 ==

== ENCOUNTER → 2018-08-06 | Outpatient (CLI) | payer MEDICARE, OTHER ==
[~2018-08-06] MED LIST changes: -AMIT10TA PO; +BUPIVACAINE HCL 0.25% 10 ML VIAL As Ordered; +BUPIVACAINE HCL 0.25% 30 ML VIAL As Ordered; -CYMB60CA3 PO; -METO1TAB87 PO; -NORCOTAB PO; -OXYC1TAB23 PO; -SKEL800T97 PO; +TRIAMCINOLONE ACETONIDE SUSP 40 MG/ML VIAL (J3301) As Ordered; -ZOFR4TAB3 PO; -[UNRECOGNIZED DRUG - OTHER] PO; -[UNRECOGNIZED DRUG - OTHER] PO; +diazePAM 5 MG TAB As Ordered; +oxyCODONE 5MG TAB As Ordered
== END ==
LOC: M PAIN 11:00
DX: M79.18 Myalgia, other site (principal); M79.10 Myalgia, unspecified site (principal); F41.9 Anxiety disorder, unspecified; F32.9 Major depressive disorder, single episode, unspecified; R51 Headache; E78.00 Pure hypercholesterolemia, unspecified; I10 Essential (primary) hypertension; M54.5 Low back pain; F43.10 Post-traumatic stress disorder, unspecified; F17.210 Nicotine dependence, cigarettes, uncomplicated; Z79.899 Other long term (current) drug therapy; Z88.1 Allergy status to other antibiotic agents; Z88.8 Allergy status to other drugs, medicaments and biological substances
CPT/HCPCS: J3301

== ENCOUNTER → 2018-08-23 | Outpatient (CLI) | payer OTHER | LOC: M PAIN 11:15 | DX: M54.2 Cervicalgia (principal); M79.18 Myalgia, other site; F43.10 Post-traumatic stress disorder, unspecified; F41.9 Anxiety disorder, unspecified; F32.9 Major depressive disorder, single episode, unspecified; I10 Essential (primary) hypertension; F17.210 Nicotine dependence, cigarettes, uncomplicated; Z79.899 Other long term (current) drug therapy; Z88.8 Allergy status to other drugs, medicaments and biological substances | CPT/HCPCS: G0463 ==

== ENCOUNTER → 2018-09-10 | Outpatient (CLI) | payer OTHER | LOC: M PAIN 12:45 | DX: M79.18 Myalgia, other site (principal); I10 Essential (primary) hypertension; E78.5 Hyperlipidemia, unspecified; F41.9 Anxiety disorder, unspecified; F32.9 Major depressive disorder, single episode, unspecified; F43.10 Post-traumatic stress disorder, unspecified; F17.210 Nicotine dependence, cigarettes, uncomplicated; Z79.899 Other long term (current) drug therapy; Z88.8 Allergy status to other drugs, medicaments and biological substances | CPT/HCPCS: J3301 ==

== ENCOUNTER → 2018-09-27 | Outpatient (CLI) | payer OTHER | LOC: M PAIN 09:45 | DX: M60.9 Myositis, unspecified (principal); I10 Essential (primary) hypertension; E78.5 Hyperlipidemia, unspecified; F41.9 Anxiety disorder, unspecified; F32.9 Major depressive disorder, single episode, unspecified; F43.10 Post-traumatic stress disorder, unspecified; F17.210 Nicotine dependence, cigarettes, uncomplicated; Z79.899 Other long term (current) drug therapy; Z88.8 Allergy status to other drugs, medicaments and biological substances | CPT/HCPCS: G0463 ==

== ENCOUNTER → 2018-10-01 | Outpatient (CLI) | payer OTHER ==
[~2018-10-01] MED LIST changes: -BUPIVACAINE HCL 0.25% 10 ML VIAL As Ordered
== END ==
LOC: M PAIN 13:15
DX: M79.18 Myalgia, other site (principal); M54.6 Pain in thoracic spine; E78.5 Hyperlipidemia, unspecified; I10 Essential (primary) hypertension; F43.10 Post-traumatic stress disorder, unspecified; F41.9 Anxiety disorder, unspecified; F32.9 Major depressive disorder, single episode, unspecified; F17.210 Nicotine dependence, cigarettes, uncomplicated; Z79.899 Other long term (current) drug therapy; Z88.8 Allergy status to other drugs, medicaments and biological substances
CPT/HCPCS: J3301

== ENCOUNTER → 2018-10-15 | Outpatient (CLI) | payer OTHER ==
[~2018-10-15] MED LIST changes: +AMIT10TA PO; +AMLO10TA5 PO; +BACT800T5 PO; -BUPIVACAINE HCL 0.25% 30 ML VIAL As Ordered; +CYMB60CA3 PO; +LATU40TA PO; +METO1TAB87 PO; +NAPR-50 PO; +NORCOTAB PO; +OMEP40CA2 PO; +OXYC1TAB23 PO; +PREG50CA PO; +SKEL800T97 PO; +TIZA6CAP PO; -TRIAMCINOLONE ACETONIDE SUSP 40 MG/ML VIAL (J3301) As Ordered; +ZOFR4TAB14 PO; +[UNRECOGNIZED DRUG - OTHER] PO; +[UNRECOGNIZED DRUG - OTHER] PO; -diazePAM 5 MG TAB As Ordered; -oxyCODONE 5MG TAB As Ordered
--- NOTE | 2018-11-07 23:57 | ECWPNPC ---
PATIENT NAME: JEOVANY PASTOR : 1975 GENDER: FEMALE VISIT DATE: 10/15/2018 DISCHARGE DATE: 10/15/18 1224 VISIT LOCKED DATE TIME: PHYSICIAN: MARGIE NAPOLES RESOURCE: MARGIE NAPOLES REASON FOR APPOINTMENT 1. POST TPI HISTORY OF PRESENT ILLNESS DEPRESSION SCREENING: PHQ-2 IN LAST TWO WEEKS HAVE YOU BEEN BOTHERED BY LITTLE INTEREST OR PLEASURE IN DOING THINGSNO FEELING DOWN, DEPRESSED, OR HOPELESSNO HISTORY OF PRESENT ILLNESS: HERE FOR POST PROCEDURE F/U.HAD TPI BILAT. NECK/SHOULDER ON 10-01-18.REPORTING IMPROVEMENT IN PAIN THAT CONTINUES TODAY.REPORTING RESOLUTION IN HEADACHES SINCE TPI.IS ATTENDING PT .RATING PAIN VAS 6.5/10.WILL BE SEEING NEUROLOGY FOR THE FIRST TIME IN A FEW DAYS.CONTINUES WITH TIGHTNESS AND PAIN RIGHT THORACIC AND LOW BACK. PAIN THE PATIENT DESCRIBES THE PAIN... THE PATIENT DESCRIBES THE PAIN... THE PATIENT DESCRIBES THE PAIN... FALL RISK SCREENING: SCREENING :NO FALLS IN THE PAST YEAR CURRENT MEDICATIONS TAKING AMITRIPTYLINE HCL 25 MG TABLET 1 TABLET ORALLY ONCE A DAY TAKING LYRICA 100 MG CAPSULE 1 CAPSULE ORALLY BID TAKING CYCLOBENZAPRINE HCL 5 MG TABLET 1 TABLET NEEDED ORALLY THREE TIMES A DAY TAKING DULOXETINE HCL 60 MG CAPSULE DELAYED RELEASE PARTICLES 2 CAPSULE ORALLY ONCE A DAY TAKING METOPROLOL SUCCINATE ER 100 MG TABLET EXTENDED RELEASE 24 HOUR 1 TABLET ORALLY ONCE A DAY TAKING AMLODIPINE BESYLATE 10 MG TABLET 1 TABLET ORALLY ONCE A DAY TAKING ATORVASTATIN CALCIUM 20 MG TABLET 1 TABLET ORALLY ONCE A DAY TAKING UNISOM 25 MG TABLET 3 TABLET AT BEDTIME NEEDED ORALLY ONCE A DAY TAKING LATUDA 60 MG TABLET 1 TABLET WITH FOOD ORALLY ONCE A DAY TAKING KLONOPIN 0.5 MG TABLET 1 TABLET AT BEDTIME ORALLY ONCE A DAY PRN TAKING IBUPROFEN 200 MG TABLET 1 TABLET WITH FOOD OR MILK NEEDED ORALLY THREE TIMES A DAY TAKING TIZANIDINE HCL 4 MG TABLET 1 TABLET NEEDED ORALLY BID PRN AT NIGHT MEDICATION LIST REVIEWED AND RECONCILED WITH THE PATIENT PAST MEDICAL HISTORY ANXIETY DEPRESSION HEADACHES HIGH LIPIDS HTN LOW BACK PAION PTSD ALLERGIES TOPOMAX: PASSOUT: ALLERGY CIPRO: RASH: ALLERGY FLAGYL: RASH: ALLERGY SURGICAL HISTORY SPINAL FUSION FAMILY HISTORY FATHER: ALIVE MOTHER: ALIVE, DIAGNOSED WITH STROKE 1 BROTHER(S) , 1 SISTER(S) - HEALTHY. 3 SON(S) - HEALTHY. SOCIAL HISTORY GENERAL: TOBACCO USE ARE YOU A:CURRENT SMOKER ARE YOU INTERESTED IN QUITTING?NOT READY TO QUIT COUNSELED THE PATIENT ON SMOKING EFFECTS, EDUCATION [id number]/14/2018 HOW MANY CIGARETTES A DAY DO YOU SMOKE?6-10 PATIENT COUNSELED ON THE DANGERS OF TOBACCO USE AND URGED TO QUIT:10/15/2018 DOES NOT WANT TO QUIT RECREATIONAL DRUG USE DRUG USE?YES MARIJUANA HOLINESS [id number] [employer] LANGUAGE LANGUAGES SPOKEN:DANISH EDUCATION LEVEL OF EDUCATION:FINISHED COLLEGE LEARNING BARRIERS / SPECIAL NEEDS BARRIERS TO LEARNING?NO HEARING IMPAIRED?NO VISION IMPAIRED?YES :CORRECTIVE LENSES COGNITIVELY IMPAIRED?NO READINESS TO LEARN?YES LEARNING PREFERENCES?NO LEARNING CAPABILITIES PRESENT?YES EMOTIONAL BARRIERS?NO SPECIAL DEVICES?YES :CANE MARITAL STATUS: . PAIN CLINIC PFS, CLERGY, PUBLIC HEALTH REFERRALS HAS THE PATIENT BEEN EDUCATED REGARDING HIS/HER PLAN OF CARE?YES HAS THE PATIENT BEEN EDUCATED REGARDING PAIN, THE RISK FOR PAIN, THE IMPORTANCE OF EFFECTIVE PAIN MANAGEMENT, AND THE PAIN ASSESSMENT PROCESS?YES ADVANCE DIRECTIVE ADVANCE DIRECTIVE DISCUSSED WITH PATIENT:YES DECLINED HCP INFORMATION AT THIS TIME REVIEWED 09/27/18 NLREVIEWED WITH PATIENT 10/01/18 1338 JSREVIEWED WITH PATIENT 10/15/18 1147 JS. HOSPITALIZATION/MAJOR DIAGNOSTIC PROCEDURE SURGERIES REVIEW OF SYSTEMS REVIEWED BY: PROVIDER: MARGIE GUY . CONSTITUTIONAL: ANY CHANGE IN YOUR MEDICAL CONDITION? NO . CHILLS NO . FEVER NO . INFECTION: DO YOU HAVE NEW INFECTIONS? NO . DO YOU HAVE HISTORY OF MRSA? NO . MUSCULOSKELETAL: ANY NEW PATTERNS OF PAIN OR NUMBNESS? YES, STATES WORSENING PAIN ON RIGHT SIDE OF BACK . GASTROENTEROLOGY: ANY NEW CHANGE IN BOWEL CONTROL? NO . GENITOURINARY: ANY NEW CHANGE IN BLADDER CONTROL? NO . IS THERE A CHANCE YOU COULD BE ? NO . HEMATOLOGY/LYMPH: DO YOU TAKE ANY BLOOD THINNERS? (FOR EXAMPLE- COUMADIN, PLAVIX, AGGRENOX, PLATEL, PRADAXA, OR XARELTO) NO . WHEN WAS YOUR LAST DOSE? DATE: TIME: . NEUROLOGY: HAVE YOU FALLEN IN THE PAST 6 MONTHS? NO . ANY NEW EXTREMITY NUMBNESS OR WEAKNESS? NO . CARDIOLOGY: DO YOU HAVE A PACEMAKER OR DEFIBRILLATOR? NO . RESPIRATORY: HAVE YOU BEEN SICK IN THE PAST WEEK? NO . FEVER NO . FLU LIKE SYMPTOMS? NO . COUGH NO . INTEGUMENTARY: DO YOU HAVE ANY RASHES OR OPEN SORES? NO . ALLERGIC/IMMUNO: ARE YOU ALLERGIC TO SHELLFISH OR IV DYE? NO . ANY NEW ALLERGIES? NO . PSYCHIATRIC: DO YOU HAVE THOUGHTS OF HURTING YOURSELF OR SOMEONE ELSE? NO . ARE YOU ABUSED, NEGLECTED, OR IN AN UNSAFE ENVIRONMENT? NO . ENDOCRINOLOGY: ARE YOU DIABETIC? NO . OTHER: DO YOU NEED ANY PRESCRIPTIONS? NO . IF YES, PLEASE LIST: ____ . ANY NEW PROBLEMS WITH YOUR MEDICATIONS? NO . WHEN DID YOU LAST EAT? ____ . WHEN DID YOU LAST DRINK? ____ . WHAT DID YOU LAST DRINK? ____ . NAME OF PERSON DRIVING YOU HOME? ____ . DO YOU HAVE ANY OTHER QUESTIONS OR CONCERNS NO . VITAL SIGNS WT 191 LBS, HT 62 IN, BMI 34.93 INDEX, BP 119/85 MM HG, HR 75 /MIN, RR 16 /MIN, TEMP 97.0 F, OXYGEN SAT % 97%, SAFE IN ENV? (Y/N) YES, NA INITIALS AW 1140, REVIEWED BY: CLARK. EXAMINATION GENERAL EXAMINATION: GENERAL APPEARANCE:AWAKE,ALERT ,PLEAASANT . PSYCHAFFECT NORMAL . LUNGS:LUNG HUMPHRIES ARE CLEAR TO AUSCULTATION BILATERALLY. GOOD MOVEMENT OF AIR . HEART:S1, S2 IN A REGULAR RATE AND RHYTHM. NO SIGNIFICANT MURMURS, RUBS OR GALLOPS NOTED . THORACIC SPINETRIGGER POINTS ELICITED IN R>L RHOMBOID/THORACIC PARASPINAL. ASSESSMENTS MYALGIA, OTHER SITE - M79.18 (PRIMARY) TREATMENT MYALGIA, OTHER SITE JEFF SPINE THORACIC 3 [id number] NOTES: PT 2XWK X6 WK THORACIC MYOFASCIAL RELEASE/STRETCHING. PROCEDURE CODES FA211 ESTABILISHED [facility]IENT [facility] CHARGE DISPOSITION & COMMUNICATION FOLLOW UP 2 MONTHS ELECTRONICALLY SIGNED BY MALENA GOODRICH ON 11/07/2018 AT 04:37 PM EST DISCLAIMER : THIS IS A VISIT SUMMARY EXTRACTED FROM THE [employer] CHART. IT IS NOT A COPY OF THE [employer] PROGRESS NOTE. CATARINA
== END ==
LOC: M PAIN 11:45
PROVIDERS: ATTEND Nurse Practitioner Family
DX: M79.18 Myalgia, other site (principal); I10 Essential (primary) hypertension; F41.9 Anxiety disorder, unspecified; F32.9 Major depressive disorder, single episode, unspecified; E78.5 Hyperlipidemia, unspecified; F43.10 Post-traumatic stress disorder, unspecified; F17.210 Nicotine dependence, cigarettes, uncomplicated; Z79.899 Other long term (current) drug therapy; Z88.8 Allergy status to other drugs, medicaments and biological substances

== ENCOUNTER → 2019-02-09 | Outpatient (CLI) | payer OTHER ==
[~2019-02-09] MED LIST changes: +HYDR-3715 PO; -NAPR-50 PO; +NAPR-837 PO; -NORCOTAB PO
--- NOTE | 2019-02-11 02:06 | ECWPNPC ---
PATIENT NAME: JEOVANY PASTOR : 1975 GENDER: FEMALE VISIT DATE: 02/09/2019 DISCHARGE DATE: 02/09/19 1327 VISIT LOCKED DATE TIME: PHYSICIAN: DEMETRIUS GARCIA RESOURCE: DEMETRIUS GARCIA REASON FOR APPOINTMENT 1. MID BACK HISTORY OF PRESENT ILLNESS HISTORY OF PRESENT ILLNESS: PAIN THE PATIENT DESCRIBES THE PAIN... SEVERITY - PAIN SCORE OF5/10 43 YR OLD FEMALE WITH ONGOING NECK, UPPER BACK AND LUMBAR PAIN. SHE HAS THORACIC PAIN AND XRAY WAS DONE :. FALL RISK SCREENING: SCREENING :NO FALLS REPORTED IN THE LAST YEAR CURRENT MEDICATIONS UNKNOWN AMITRIPTYLINE HCL 25 MG TABLET 1 TABLET ORALLY ONCE A DAY UNKNOWN LYRICA 100 MG CAPSULE 1 CAPSULE ORALLY BID UNKNOWN CYCLOBENZAPRINE HCL 5 MG TABLET 1 TABLET NEEDED ORALLY THREE TIMES A DAY UNKNOWN DULOXETINE HCL 60 MG CAPSULE DELAYED RELEASE PARTICLES 2 CAPSULE ORALLY ONCE A DAY UNKNOWN METOPROLOL SUCCINATE ER 100 MG TABLET EXTENDED RELEASE 24 HOUR 1 TABLET ORALLY ONCE A DAY UNKNOWN AMLODIPINE BESYLATE 10 MG TABLET 1 TABLET ORALLY ONCE A DAY UNKNOWN ATORVASTATIN CALCIUM 20 MG TABLET 1 TABLET ORALLY ONCE A DAY UNKNOWN UNISOM 25 MG TABLET 3 TABLET AT BEDTIME NEEDED ORALLY ONCE A DAY UNKNOWN LATUDA 60 MG TABLET 1 TABLET WITH FOOD ORALLY ONCE A DAY UNKNOWN KLONOPIN 0.5 MG TABLET 1 TABLET AT BEDTIME ORALLY ONCE A DAY PRN UNKNOWN IBUPROFEN 200 MG TABLET 1 TABLET WITH FOOD OR MILK NEEDED ORALLY THREE TIMES A DAY UNKNOWN TIZANIDINE HCL 4 MG TABLET 1 TABLET NEEDED ORALLY BID PRN AT NIGHT PAST MEDICAL HISTORY ANXIETY DEPRESSION HEADACHES HIGH LIPIDS HTN LOW BACK PAION PTSD ALLERGIES TOPOMAX: PASSOUT - ALLERGY CIPRO: RASH - ALLERGY FLAGYL: RASH - ALLERGY SURGICAL HISTORY SPINAL FUSION FAMILY HISTORY FATHER: ALIVE MOTHER: ALIVE, DIAGNOSED WITH STROKE 1 BROTHER(S) , 1 SISTER(S) - HEALTHY. 3 SON(S) - HEALTHY. SOCIAL HISTORY GENERAL: TOBACCO USE ARE YOU A:CURRENT SMOKER ARE YOU INTERESTED IN QUITTING?NOT READY TO QUIT COUNSELED THE PATIENT ON SMOKING EFFECTS, EDUCATION [id number]/14/2018 HOW MANY CIGARETTES A DAY DO YOU SMOKE?6-10 PATIENT COUNSELED ON THE DANGERS OF TOBACCO USE AND URGED TO QUIT:02/09/2019 DOES NOT WANT TO QUIT LATEX QUESTIONNAIRE LATEX ALLERGY : HAVE YOU EVER DEVELOPED ANY TYPE OF REACTION AFTER HANDLING LATEX PRODUCTS SUCH RUBBER GLOVES, CONDOMS, DIAPHRAGMS, BALLOONS, SOCKS, OR UNDERWEAR?NO LATEX ALLERGY : HAVE YOU EVER DEVELOPED ANY TYPE OF REACTION DURING OR AFTER DENTAL APPOINTMENT, VAGINAL/RECTAL EXAMINATION, SURGICAL PROCEDURE, OR ANY OTHER EXPOSURE?NO LATEX RISK : HAVE YOU EVER HAD ANY DIFFICULTY BREATHING OR HIVES AFTER EATING OR HANDLING ANY FRUITS, OR VEGETABLES; SUCH KIWI, BANANAS, STONE FRUITS, OR CHESTNUTSNO LATEX RISK : DO YOU HAVE A PREVIOUS PERSONAL HISTORY OF MORE THAN NINE SURGERIES, SPINA BIFIDA, OR REPEATED CATHERTIZATIONS? NO LATEX RISK : ARE YOU FREQUENTLY EXPOSED TO LATEX PRODUCTS IN YOUR OCCUPATION?NO DATE ASKED : 02/09/2019 RECREATIONAL DRUG USE DRUG USE?YES MARIJUANA RESTORATIONISM [id number] YARSANI LANGUAGE LANGUAGES SPOKEN:MAORI EDUCATION LEVEL OF EDUCATION:FINISHED COLLEGE LEARNING BARRIERS / SPECIAL NEEDS BARRIERS TO LEARNING?NO HEARING IMPAIRED?NO VISION IMPAIRED?YES :CORRECTIVE LENSES COGNITIVELY IMPAIRED?NO READINESS TO LEARN?YES LEARNING PREFERENCES?NO LEARNING CAPABILITIES PRESENT?YES EMOTIONAL BARRIERS?NO SPECIAL DEVICES?YES :CANE MARITAL STATUS: . PAIN CLINIC PFS, CLERGY, PUBLIC HEALTH REFERRALS WAS THE PROVIDER NOTIFIED OF ANY PERTINENT INFO?YES HAS THE PATIENT BEEN EDUCATED REGARDING HIS/HER PLAN OF CARE?YES HAS THE PATIENT BEEN EDUCATED REGARDING PAIN, THE RISK FOR PAIN, THE IMPORTANCE OF EFFECTIVE PAIN MANAGEMENT, AND THE PAIN ASSESSMENT PROCESS?YES ADVANCE DIRECTIVE ADVANCE DIRECTIVE DISCUSSED WITH PATIENT:YES DECLINED HCP INFORMATION AT THIS TIME REVIEWED 09/27/18 NLREVIEWED WITH PATIENT 10/01/18 1338 JSREVIEWED WITH PATIENT 10/15/18 1147 JS. HOSPITALIZATION/MAJOR DIAGNOSTIC PROCEDURE SURGERIES REVIEW OF SYSTEMS REVIEWED BY: PROVIDER: EPHRAIM Ayala CONSTITUTIONAL: ANY CHANGE IN YOUR MEDICAL CONDITION? NO . CHILLS NO . FEVER NO . INFECTION: DO YOU HAVE NEW INFECTIONS? NO . DO YOU HAVE HISTORY OF MRSA? NO . MUSCULOSKELETAL: ANY NEW PATTERNS OF PAIN OR NUMBNESS? NO . GASTROENTEROLOGY: ANY NEW CHANGE IN BOWEL CONTROL? NO . GENITOURINARY: ANY NEW CHANGE IN BLADDER CONTROL? YES . IS THERE A CHANCE YOU COULD BE ? NO . HEMATOLOGY/LYMPH: DO YOU TAKE ANY BLOOD THINNERS? (FOR EXAMPLE- COUMADIN, PLAVIX, AGGRENOX, PLATEL, PRADAXA, OR XARELTO) NO . WHEN WAS YOUR LAST DOSE? DATE: TIME: . NEUROLOGY: HAVE YOU FALLEN IN THE PAST 12 MONTHS? NO . ANY NEW EXTREMITY NUMBNESS OR WEAKNESS? NO . CARDIOLOGY: DO YOU HAVE A PACEMAKER OR DEFIBRILLATOR? NO . RESPIRATORY: HAVE YOU BEEN SICK IN THE PAST WEEK? NO . FEVER NO . FLU LIKE SYMPTOMS? NO . COUGH NO . INTEGUMENTARY: DO YOU HAVE ANY RASHES OR OPEN SORES? NO . ALLERGIC/IMMUNO: ARE YOU ALLERGIC TO IV DYE? NO . ANY NEW ALLERGIES? NO . PSYCHIATRIC: DO YOU HAVE THOUGHTS OF HURTING YOURSELF OR SOMEONE ELSE? NO . ARE YOU ABUSED, NEGLECTED, OR IN AN UNSAFE ENVIRONMENT? NO . ENDOCRINOLOGY: ARE YOU DIABETIC? NO . OTHER: DO YOU NEED ANY PRESCRIPTIONS? YES, TIZANIDINE . IF YES, PLEASE LIST: ____ . ANY NEW PROBLEMS WITH YOUR MEDICATIONS? NO . WHEN DID YOU LAST EAT? ____ . WHEN DID YOU LAST DRINK? ____ . WHAT DID YOU LAST DRINK? ____ . NAME OF PERSON DRIVING YOU HOME? ____ . DO YOU HAVE ANY OTHER QUESTIONS OR CONCERNS YES, PT HAD X-RAY DONE, PT WOULD LIKE TO SCHEDULE TPI OF NECK AND SHOULDERS, PT STATES THAT SHE DID NOT GO TO PT DUE TO PERSONAL ISSUES, PT COULD NOT TOLERATE BEING TOUCHED AT THIS TIME. DS . VITAL SIGNS WT 198.3 LBS, HT 62 IN, BMI 36.27 INDEX, BP 125/86 MM HG, HR 81 /MIN, RR 16 /MIN, TEMP 97.3 F, OXYGEN SAT % 93%, SAFE IN ENV? (Y/N) Y, NA INITIALS AW 1156, REVIEWED BY: DS. EXAMINATION GENERAL EXAMINATION: GENERAL APPEARANCE:NO ACUTE DISTRESS, WELL NOURISHED AND HYDRATED. NECK: LIMITED ROM PAIN WITH EXTENSIONAND ROTATION OF CERVICAL SPINE BANDS OF TISSUE PALPALTED ON BILATERAL PARACERVICAL MUSCLES. LUNGS:CLEAR TO AUSCULTATION BILATERALLY, NO WHEEZES, RHONCHI, RALES. HEART:NO MURMURS, REGULAR RATE AND RHYTHM. BACK: TENDER TO PALPATION ALONG THORACIC AND LUMBAR SPINE. SLR NEGATIVE. ASSESSMENTS CERVICALGIA - M54.2 (PRIMARY) MYALGIA - M79.1 PAIN IN THORACIC SPINE - M54.6 OTHER CHRONIC PAIN - G89.29 TREATMENT CERVICALGIA CONTINUE TIZANIDINE HCL TABLET, 4 MG, 1 TABLET NEEDED, ORALLY, BID PRN AT NIGHT, 30 DAYS, 60, REFILLS 0 CLINICAL NOTES: ISTOP REGISTRY REVIEWED AND DEMONSTRATES COMPLLIANCE. (REF # [id number] ). PAIN IN THORACIC SPINE MRI : THORACIC [id number] CLINICAL NOTES: BILAT TPI CERVIAL/THORACIC. PROCEDURE CODES FA211 ESTABILISHED PATIENT [facility] CHARGE DISPOSITION & COMMUNICATION FOLLOW UP POST PROCEDURE WITH MARGIE (REASON: BILAT TPI CERVIAL/THORACIC) ELECTRONICALLY SIGNED BY MALENA ISABEL ON 02/10/2019 AT 04:20 PM EDT DISCLAIMER : THIS IS A VISIT SUMMARY EXTRACTED FROM THE [employer] CHART. IT IS NOT A COPY OF THE [employer] PROGRESS NOTE. MTDD
== END ==
LOC: M PAIN 11:15
PROVIDERS: ATTEND Nurse Practitioner Family
DX: G89.29 Other chronic pain (principal); M54.2 Cervicalgia; M79.18 Myalgia, other site; M54.6 Pain in thoracic spine; F41.9 Anxiety disorder, unspecified; F32.9 Major depressive disorder, single episode, unspecified; R51 Headache; I10 Essential (primary) hypertension; M54.5 Low back pain; F43.10 Post-traumatic stress disorder, unspecified; E78.5 Hyperlipidemia, unspecified; F17.210 Nicotine dependence, cigarettes, uncomplicated; Z79.891 Long term (current) use of opiate analgesic; Z88.1 Allergy status to other antibiotic agents; Z88.8 Allergy status to other drugs, medicaments and biological substances

== ENCOUNTER → 2019-02-25 | Outpatient (CLI) | payer OTHER ==
[~2019-02-25] MED LIST changes: +BUPIVACAINE HCL 0.25% 10 ML VIAL As Ordered ONE; +BUPIVACAINE HCL 0.25% 30 ML VIAL As Ordered ONE; +diazePAM 5 MG TAB As Ordered ONE; +oxyCODONE 5MG TAB As Ordered ONE
--- NOTE | 2019-03-14 00:24 | ECWPNPC ---
PATIENT NAME: JEOVANY PASTOR : 1975 GENDER: FEMALE VISIT DATE: 02/25/2019 DISCHARGE DATE: 02/25/19 1019 VISIT LOCKED DATE TIME: PHYSICIAN: TORSTEN MUNSON MD RESOURCE: TORSTEN MUNSON MD REASON FOR APPOINTMENT 1. TPI HISTORY OF PRESENT ILLNESS HISTORY OF PRESENT ILLNESS: PAIN THE PATIENT DESCRIBES THE PAIN... FALL RISK SCREENING: SCREENING :NO FALLS REPORTED IN THE LAST YEAR CURRENT MEDICATIONS TAKING TIZANIDINE HCL 4 MG TABLET 1 TABLET NEEDED ORALLY BID PRN AT NIGHT, NOTES: 02/24/192099 TAKING AMITRIPTYLINE HCL 25 MG TABLET 1 TABLET ORALLY ONCE A DAY, NOTES: 02/24/192099 TAKING LYRICA 100 MG CAPSULE 1 CAPSULE ORALLY BID, NOTES: 02/24/19 0900 TAKING CYCLOBENZAPRINE HCL 5 MG TABLET 1 TABLET NEEDED ORALLY THREE TIMES A DAY, NOTES: 02/24/192099 TAKING DULOXETINE HCL 60 MG CAPSULE DELAYED RELEASE PARTICLES 2 CAPSULE ORALLY ONCE A DAY, NOTES: 02/24/192099 TAKING METOPROLOL SUCCINATE ER 100 MG TABLET EXTENDED RELEASE 24 HOUR 1 TABLET ORALLY ONCE A DAY, NOTES: 02/24/192099 TAKING AMLODIPINE BESYLATE 10 MG TABLET 1 TABLET ORALLY ONCE A DAY, NOTES: 02/24/192099 TAKING ATORVASTATIN CALCIUM 20 MG TABLET 1 TABLET ORALLY ONCE A DAY, NOTES: 02/24/192099 TAKING UNISOM 25 MG TABLET 3 TABLET AT BEDTIME NEEDED ORALLY ONCE A DAY, NOTES: 02/24/192099 TAKING KLONOPIN 0.5 MG TABLET 1 TABLET AT BEDTIME ORALLY ONCE A DAY PRN, NOTES: 02/24/192099 NOT-TAKING LATUDA 60 MG TABLET 1 TABLET WITH FOOD ORALLY ONCE A DAY NOT-TAKING IBUPROFEN 200 MG TABLET 1 TABLET WITH FOOD OR MILK NEEDED ORALLY THREE TIMES A DAY MEDICATION LIST REVIEWED AND RECONCILED WITH THE PATIENT PAST MEDICAL HISTORY ANXIETY DEPRESSION HEADACHES HIGH LIPIDS HTN LOW BACK PAION PTSD METASTATIC OVARIAN CANCER ALLERGIES TOPOMAX: PASSOUT - ALLERGY CIPRO: RASH - ALLERGY FLAGYL: RASH - ALLERGY SURGICAL HISTORY SPINAL FUSION FAMILY HISTORY FATHER: ALIVE MOTHER: ALIVE, DIAGNOSED WITH STROKE 1 BROTHER(S) , 1 SISTER(S) - HEALTHY. 3 SON(S) - HEALTHY. SOCIAL HISTORY GENERAL: TOBACCO USE ARE YOU A:CURRENT SMOKER ARE YOU INTERESTED IN QUITTING?NOT READY TO QUIT COUNSELED THE PATIENT ON SMOKING EFFECTS, EDUCATION [id number]/14/2018 HOW MANY CIGARETTES A DAY DO YOU SMOKE?6-10 PATIENT COUNSELED ON THE DANGERS OF TOBACCO USE AND URGED TO QUIT:02/09/2019 DOES NOT WANT TO QUIT PAIN CLINIC PFS, CLERGY, PUBLIC HEALTH REFERRALS WAS THE PROVIDER NOTIFIED OF ANY PERTINENT INFO?YES HAS THE PATIENT BEEN EDUCATED REGARDING HIS/HER PLAN OF CARE?YES HAS THE PATIENT BEEN EDUCATED REGARDING PAIN, THE RISK FOR PAIN, THE IMPORTANCE OF EFFECTIVE PAIN MANAGEMENT, AND THE PAIN ASSESSMENT PROCESS?YES LATEX QUESTIONNAIRE LATEX ALLERGY : HAVE YOU EVER DEVELOPED ANY TYPE OF REACTION AFTER HANDLING LATEX PRODUCTS SUCH RUBBER GLOVES, CONDOMS, DIAPHRAGMS, BALLOONS, SOCKS, OR UNDERWEAR?NO LATEX ALLERGY : HAVE YOU EVER DEVELOPED ANY TYPE OF REACTION DURING OR AFTER DENTAL APPOINTMENT, VAGINAL/RECTAL EXAMINATION, SURGICAL PROCEDURE, OR ANY OTHER EXPOSURE?NO LATEX RISK : HAVE YOU EVER HAD ANY DIFFICULTY BREATHING OR HIVES AFTER EATING OR HANDLING ANY FRUITS, OR VEGETABLES; SUCH KIWI, BANANAS, STONE FRUITS, OR CHESTNUTSNO LATEX RISK : DO YOU HAVE A PREVIOUS PERSONAL HISTORY OF MORE THAN NINE SURGERIES, SPINA BIFIDA, OR REPEATED CATHERTIZATIONS? NO LATEX RISK : ARE YOU FREQUENTLY EXPOSED TO LATEX PRODUCTS IN YOUR OCCUPATION?NO DATE ASKED : 02/09/2019 ADVANCE DIRECTIVE ADVANCE DIRECTIVE DISCUSSED WITH PATIENT:YES HCP IS LISA MENDOZA [phone] EDUCATION LEVEL OF EDUCATION:FINISHED COLLEGE BUDDHIST [id number] [employer]ASTRIAN LANGUAGE LANGUAGES SPOKEN:SETSWANA MARITAL STATUS: . RECREATIONAL DRUG USE DRUG USE?YES MARIJUANA LEARNING BARRIERS / SPECIAL NEEDS BARRIERS TO LEARNING?NO HEARING IMPAIRED?NO VISION IMPAIRED?YES :CORRECTIVE LENSES COGNITIVELY IMPAIRED?NO READINESS TO LEARN?YES LEARNING PREFERENCES?NO LEARNING CAPABILITIES PRESENT?YES EMOTIONAL BARRIERS?NO SPECIAL DEVICES?YES :STACY REVIEWED 09/27/18 NLREVIEWED WITH PATIENT 10/01/18 1338 JSREVIEWED WITH PATIENT 10/15/18 1147 JSREVIEWED WITH PATIENT 02/25/19 0925 LAS. HOSPITALIZATION/MAJOR DIAGNOSTIC PROCEDURE SURGERIES REVIEW OF SYSTEMS REVIEWED BY: PROVIDER: . CONSTITUTIONAL: ANY CHANGE IN YOUR MEDICAL CONDITION? YES PT REPORTS A NEW DIAGNOSIS OF OVARIAN CANCER, TO HAVE SURGERY DONE 03/02 . CHILLS NO . FEVER NO . INFECTION: DO YOU HAVE NEW INFECTIONS? NO . DO YOU HAVE HISTORY OF MRSA? NO . MUSCULOSKELETAL: ANY NEW PATTERNS OF PAIN OR NUMBNESS? NO . GASTROENTEROLOGY: ANY NEW CHANGE IN BOWEL CONTROL? NO . GENITOURINARY: ANY NEW CHANGE IN BLADDER CONTROL? NO . IS THERE A CHANCE YOU COULD BE ? NO . HEMATOLOGY/LYMPH: DO YOU TAKE ANY BLOOD THINNERS? (FOR EXAMPLE- COUMADIN, PLAVIX, AGGRENOX, PLATEL, PRADAXA, OR XARELTO) NO . WHEN WAS YOUR LAST DOSE? DATE: TIME: . NEUROLOGY: HAVE YOU FALLEN IN THE PAST 12 MONTHS? NO . ANY NEW EXTREMITY NUMBNESS OR WEAKNESS? NO . CARDIOLOGY: DO YOU HAVE A PACEMAKER OR DEFIBRILLATOR? NO . RESPIRATORY: HAVE YOU BEEN SICK IN THE PAST WEEK? NO . FEVER NO . FLU LIKE SYMPTOMS? NO . COUGH NO . INTEGUMENTARY: DO YOU HAVE ANY RASHES OR OPEN SORES? NO . ALLERGIC/IMMUNO: ARE YOU ALLERGIC TO IV DYE? NO . ANY NEW ALLERGIES? NO . PSYCHIATRIC: DO YOU HAVE THOUGHTS OF HURTING YOURSELF OR SOMEONE ELSE? NO . ARE YOU ABUSED, NEGLECTED, OR IN AN UNSAFE ENVIRONMENT? NO . ENDOCRINOLOGY: ARE YOU DIABETIC? NO . OTHER: DO YOU NEED ANY PRESCRIPTIONS? NO . IF YES, PLEASE LIST: ____ . ANY NEW PROBLEMS WITH YOUR MEDICATIONS? NO . WHEN DID YOU LAST EAT? ____02/24/19 1630 . WHEN DID YOU LAST DRINK? ____02/25/19 0600 . WHAT DID YOU LAST DRINK? ____WATER . NAME OF PERSON DRIVING YOU HOME? LISA MENDOZA____ . DO YOU HAVE ANY OTHER QUESTIONS OR CONCERNS NO . VITAL SIGNS WT 196.6 LBS, HT 62 IN, BMI 35.95 INDEX, BP 115/82 MM HG, HR 78 /MIN, RR 16 /MIN, TEMP 96.7 F, OXYGEN SAT % 97%, NA INITIALS SC 09:03. ASSESSMENTS MYALGIA, OTHER SITE - M79.18 (PRIMARY) PROCEDURES PN TRIGGER POINT INJECTION WITH STEROIDS PRE PROCEDURE DIAGNOSIS 1. MYALGIA 2. PAIN AT BILATERAL NECK AREA AND BILATERAL SHOULDER AREA. POST PROCEDURE DIAGNOSIS 1. MYALGIA 2. PAIN AT BILATERAL NECK AREA AND BILATERAL SHOULDER AREA. PROCEDURE TRIGGER POINT INJECTION AT BILATERAL NECK AREA AND BILATERAL SHOULDER AREA. SURGEON DR. TORSTEN MUNSON BROOCH AND BRACELET MAKER NONE ANESTHESIA LOCAL PRE PROCEDURE NOTE THE PATIENT HAS A HISTORY OF CHRONIC PAIN AT THE RIGHT AND LEFT NECK AREA AND LEFT AND RIGHT SHOULDER AREA. I EVALUATED THE PATIENT AND REVIEWED THE CHART. THERE IS EVIDENCE OF BANDS OF TISSUE WITH RESTRICTION OF MOVEMENT AND PRESENCE OF TRIGGER POINT AT THE AFFECTED AREA. I WENT OVER THE RISKS, ALTERNATIVES, AND BENEFITS ASSOCIATED WITH THIS PROCEDURE. THE PATIENT WOULD LIKE TO PROCEED AND GIVE CONSENT TO PERFORMED THE PROCEDURE. THE PATIENT DENIES UNEXPLAINABLE WEIGHT LOSS, FEVER, CHILLS, OR NEW CHANGES IN URINARY OR BOWEL CONTROL DESCRIPTION OF PROCEDURE THE PATIENT WAS BROUGHT TO THE PROCEDURE ROOM AND PLACED IN THE SITTING POSITION. THE AREA WAS CLEANED WITH ALCOHOL. THE PROCEDURE WAS DONE USING ASEPTIC STERILE TECHNIQUE. I CHECKED LATERALITY AND THE LEVEL WHERE THE PROCEDURE WAS GOING TO BE PERFORMED WITH THE PATIENT AND THE SUPPORTING STAFF AT THE MOMENT OF THE TIME OUT IN THE PROCEDURE ROOM. USING A 25-GAUGE NEEDLE, TRIGGER POINTS WERE INJECTED AT THE RIGHT AND LEFT NECK AREA AND RIGHT AND LEFT SHOULDER AREA WITH A TOTAL OF 40 ML OF BUPIVACAINE 0.25% . THERE WAS NO EVIDENCE OF BLOOD, PARESTHESIA OR CEREBROSPINAL FLUID DURING THE PROCEDURE. THE PATIENT WAS SENT TO THE RECOVERY ROOM. THE PATIENT WAS MOVING THE EXTREMITIES AND DOING WELL. THERE WAS NO COMPLICATION DURING THE PROCEDURE POST PROCEDURE NOTE THE PATIENT WILL BE SEEN IN A FOLLOW UP IN THE NEXT FEW WEEKS. INSTRUCTIONS WERE GIVEN, QUESTIONS WERE ANSWERED, AND THE PATIENT EXPRESSED UNDERSTANDING AND AGREES WITH THE PLAN. I, LEONARDO RODRIGUEZ, DOCUMENTED THE ABOVE INFORMATION ACTING A SCRIBE FOR DR. MUNSON. I HAVE REVIEWED THE ABOVE DOCUMENT, WRITTEN BY LEONARDO HOU AND I VERIFY THAT IT IS ACCURATE. PROCEDURE CODES 93855 INJECT TRIGGER POINTS 3/> DISPOSITION & COMMUNICATION FOLLOW UP 3 WEEKS ELECTRONICALLY SIGNED BY TORSTEN MUNSON MD, MD ON 03/13/2019 AT 05:13 PM EDT DISCLAIMER : THIS IS A VISIT SUMMARY EXTRACTED FROM THE [employer] CHART. IT IS NOT A COPY OF THE [employer] PROGRESS NOTE. CATARINA
== END ==
LOC: M PAIN 08:45
PROVIDERS: ATTEND Anesthesiology
DX: M79.18 Myalgia, other site (principal); M54.2 Cervicalgia; M25.511 Pain in right shoulder; M25.512 Pain in left shoulder; E78.5 Hyperlipidemia, unspecified; I10 Essential (primary) hypertension; F17.210 Nicotine dependence, cigarettes, uncomplicated; C56.9 Malignant neoplasm of unspecified ovary; Z79.899 Other long term (current) drug therapy; Z88.1 Allergy status to other antibiotic agents; Z88.8 Allergy status to other drugs, medicaments and biological substances; Z86.59 Personal history of other mental and behavioral disorders